=== PATIENT | male | born 1970 | race Caucasian/White ===

== ENCOUNTER 2023-12-17 12:14 | Outpatient (OUT) | payer BC, SELFPAY ==
--- NOTE | 2023-12-17 13:00 | CA_ITS ---
Patient Name: SHANTAL SUAREZ MR#: [id number] : 1970 Exam Date: 12/17/2023 Ordering Doctor: DR JUD GREENFIELD M.D. ECHOCARDIOGRAM REPORT PROCEDURE: CA ECHO DOPPLER COMPLETE INDICATIONS: Palpitations, hypertension, cardiac stents COMPARISON: None. DESCRIPTION: COMPLETE ECHOCARDIOGRAM Real-time transthoracic echocardiography with 2D, M-mode, spectral and color flow Doppler performed. QUALITY: Technical quality was good. 71 , 275#, BSA 2.41 m2, BP 112/74 LEFT VENTRICLE: Normal chamber size. Thickened septal wall. LV EF: Global left ventricular systolic function is normal; visually estimated ejection fraction 55 to 60%. No obvious wall motion abnormalities. DIASTOLIC: Normal diastolic function. ATRIAL SEPTUM: Visually appears intact. LEFT ATRIUM: Normal chamber size. RIGHT ATRIUM: Normal chamber size. RIGHT VENTRICLE: Normal chamber size. Normal right ventricular systolic function. TRICUSPID VALVE: Normal mobility and thickness. No stenosis with trivial regurgitation. No evidence of pulmonary hypertension. RVSP 32 mmHg MITRAL VALVE: Normal mobility and thickness. No evidence of mitral valve stenosis. There is no mitral annular calcification. Trivial mitral regurgitation. AORTIC VALVE: Normal trileaflet appearance. No visible sclerosis. Normal leaflet mobility. No evidence of aortic valve stenosis. No aortic regurgitation. AORTIC ROOT: Normal diameter and appearance. Ascending aorta is normal in size. PULMONIC VALVE: Normal thickness and mobility. No stenosis. Trivial regurgitation. PERICARDIUM: No evidence of pericardial effusion. IVC: Collapses with inspirations. IVC is dilated (2.3 cm) CONCLUSION: 1. Global left ventricular systolic function is normal; visually estimated ejection fraction is 55 to 60% 2. Normal right ventricular size and systolic function 3. Normal diastolic function 4. No significant valvular abnormalities Adult Echocardiography Procedure Report Left Ventricle LVEDD (3.7 - 5.6 cm): 5.14 cm LVESD (2.2 - 4.0 cm): 3.63 cm LVIVS thickness (0.6 - 1.2 cm): 1.72 cm LVPW thickness (0.5 - 1.0 cm): 1.05 cm e': 0.11 m/s E - e': 7.67 LVOT Max Gradient: 4.16 mm[Hg] LVOT Area (cm2): 1.02 m/s Peak Velocity (LVOT): 1.02 m/s Mean Velocity (LVOT): 0.75 m/s LVOT Diameter 2.74 cm Left Atrium LA Volume Index (2D A2C): 30.12 ml/m2 Left Atrium Systolic Dimension: 4.51 cm Mitral Valve MV E to A Ratio: 1.22 Mitral Valve A-Wave Peak Velocity: 0.71 m/s Mitral Valve E-Wave Peak Velocity: 0.87 m/s Right Ventricle Aorta AO Root Diam: 4.33 cm Ascending Ao Diam: 3.39 cm Aortic Valve AoV Area (Peak Ar): 5.06 cm2, 5.06 cm2 AoV Area (VTI): 5.01 cm2, 5.01 cm2 Peak Velocity(Antegrade Flow): 1.19 m/s Peak Gradient(Antegrade Flow): 5.65 mm[Hg] Mean Velocity(Antegrade Flow): 0.81 m/s Mean Gradient(Antegrade Flow): 3.05 mm[Hg] Velocity Time Integral: 27.21 cm Tricuspid Valve Peak Velocity (Regurgitant Flow): 2.46 m/s Pulmonic Valve Peak Gradient: 3.37 mm[Hg], 2.56 mm[Hg] Right Atrium Right Atrium Systolic Pressure: 65.28 ml, 65.28 ml Dictated by: Jud Greenfield M.D. on 12/19/2023 at 15:12 Approved by: Jud Greenfield M.D. on 12/19/2023 at 15:15
[2023-12-17 13:21] LABS: Alanine Aminotransferase 24 U/L (16-63); Albumin Globulin Ratio 1.3; Albumin Level 3.9 g/dL (3.4-5.0); Alkaline Phosphatase 47 U/L (46-116); Aspartate Amino Transferase 12 U/L (15-37); Bilirubin Direct 0.3 mg/dL (0.0-0.2); Bilirubin Total 1.4 mg/dL (0.2-1.0); Chol HDL Ratio 2.2; Cholesterol 98 mg/dL (<=200); HDL Cholesterol 44 mg/dL (40-60); Total Protein 6.9 g/dL (6.4-8.2); Triglycerides 60 mg/dL (<=150)
== END 2023-12-17 12:15 | disposition home or self-care (01) ==
LOC: CARD 12:17
PROVIDERS: PCP Internal Medicine; Visit Provider Internal Medicine Interventional Cardiology
DX: R00.2 Palpitations (principal); E78.5 Hyperlipidemia, unspecified
CPT/HCPCS: 36415; 80061; 80076; 93306

== ENCOUNTER 2024-11-17 10:02 | Outpatient (OUT) | payer BC, SELFPAY ==
--- OUTSIDE RECORDS SUMMARY | 2024-11-17 10:25 | XMS_ITS | CCD ---
Author Organization [facility] CliniSynj Care Team Providers Care Representative Personal Service Name Role Phone DAVID MARES Referring Unavailable CHAU REGALADO Primary Care Unavailable Chau Regalado Primary Care Provider [phone] Shantal Lopez Unavailable CHAU REGALADO Primary Care Physician [phone] SE[address] ., DR KIRBY Admitting Unavailable GANDARA ., DR KIRBY Attending Unavailable CLAUDIA, DR ABREU Primary Care Unavailable GANDARA ., DR KIRBY Consulting Unavailable LLOYD, SANGEETHA Admitting Unavailable SANGEETHA DESAI Attending Unavailable CLAUDIA, DR ABREU Primary Care Unavailable SANGEETHA DESAI Consulting Unavailable SHANTAL LOPEZ Admitting Unavailable JESSICA, SHANTAL Attending Unavailable CLAUDIA, DR ABREU Primary Care Unavailable CLAUDIA, DR ABREU Admitting Unavailable CLAUDIA, DR ABREU Attending Unavailable CLAUDIA, DR ABREU Primary Care Unavailable SANGEETHA DESAI Admitting Unavailable SANGEETHA DESAI Attending Unavailable CLAUDIA, DR ABREU Primary Care Unavailable MISC, DR MARY Admitting Unavailable MISC, DR MARY Attending Unavailable CLAUDIA, DR ABREU Primary Care Unavailable SANGEETHA DESAI Consulting Unavailable Jena Jackson Unavailable Chau Regalado Unavailable MD Shantal Lopez Attending Provider [phone] DO Chau Regalado Primary Care Provider [phone] DO Chau Regalado Primary Care Provider MAIN Jackson Attending Provider Shantal Lopez Admitting Unavailable Jessica, Shantal Attending Unavailable Chau Regalado Primary Care Unavailable Jena Jackson Admitting Unavailable Jena Jackson Attending Unavailable Chau Regalado Primary Care Unavailable Nash Rivas Primary Care Provider NAHED MEAR Referring NAHED Ayala Attending NASH Carballo Primary [facility] [place] Unavailab NASH Berman MORTEZA Primary Care Unavailab Wild Rose Attending Unavailable SEYMOUR, Wild Herrera Attending Unavailable SEYMOUR, Wild Herrera Attending Unavailable SEYMOUR, Wild Herrera Attending Unavailable SEYMOUR, Wild Herrera Admitting Unavailable TRACY MILLER Attending Unavailable EVITA, AB Attending Unavailable Allergies Allergy Classification Reported Allergen(s) Allergy Type Date of Onset Reaction(s) Facility (11 sources) Penicillins; Translations: [penicillins] Propensity to adverse reactions to drug 02-09-20 03 Rash, Unknown (qualifier value) [facility], [place] (3 sources) Penicillin V Drug Allergy Unknown [facility] Other (2 sources) Penicillins Drug allergy (disorder) 01-14-[address] [facility] Repository (6 sources) penicillAMINE Drug Allergy 12-03-19 Comment:unsure had reaction as a child [facility] (3 sources) Penicillin Drug Allergy Unknown [facility] Other (3 sources) Allergies Reconciled Propensity to adverse reactions Unknown [facility] Other (3 sources) Substance with penicillin structure and antibacterial mechanism of action (substance) Drug allergy Unknown [facility] Other (3 sources) patient allergy list reviewed by nurse or physicia Propensity to adverse reactions 05-25-20 16 Comment:Done [facility] Other (1 source) penicillAMINE Drug Allergy 12-03-19 [facility] Repository (1 source) Penicillins Drug allergy (disorder) 12-03-19 [facility] Repository (2 sources) Penicillins Drug Allergy 02-09-20 03 Rash, Unknown [facility] Medications Current Medications Medication Drug Class(es) Dates Sig (Normalized) Sig (Original) amLODIPine 5 mg oral tablet (11 sources) Dihydropyridine Calcium Channel Almaz Start: 12-03-2023 take 1 tablet by mouth once daily amLODIPine (NORVASC) 5 mg tablet Take 1 tablet by mouth once daily. 12/03/2023 Active take 1 tablet by vanessa th every twenty-four hours amLODIPine Besylate 5 MG 1 tablet Orally Once a day Active aspirin 81 mg delayed release oral tablet (16 sources) Platelet Aggregation Inhibitor, Nonsteroidal Anti-inflammatory Drug Start: 12-03-2023 take 1 tablet by mouth once daily Aspirin Active 81 MG PO Daily December 03, 2023 12:00am [facility] tablet Orally Once a day; Note: Source Status: Taking; Provider: Jessica Garcia ( ) Start: 06-18-2022 aspirin 81 mg Chew Tab mg tab(s), Chewed, Daily, Refills(s) 0 Start Date: 06/18/22 Status: Ordered atorvastatin 80 mg oral tablet (16 sources) HMG-CoA Reductase Inhibitor Start: 12-03-2023 take 1 tablet by mouth once daily Atorvastatin Active 1 TAB PO Daily December 03, 2023 12:00am [employer] tablet Orally Once a day; Note: Source Status: Taking; Provider: Jessica Garcia ( ) Start: 06-18-2022 atorvastatin O ral, Daily, Refills(s) 0 Start Date: 06/18/22 Status: Ordered Start: 03-11-2019 take 1 tablet by vanessa th once daily atorvastatin (LIPITOR) 80 MG tablet Take 80 mg by mouth daily 0 03/11/2019 Active carvedilol 3.125 mg oral tablet (15 sources) alpha-Adrenergic Almaz, beta-Adrenergic Almaz Start: 12-03-2023 take 1 tablet by mouth twice daily at mealtime Carvedilol Active 1 TAB PO Twice daily December 03, 2023 12:00am [employer] tablet with food Orally Twice a day; Note: Source Status: Taking; Provider: Jessica Garcia ( ) Start: 06-18-2022 carvedilol Ora l, Refills(s) 0 Start Date: 06/18/22 Status: Ordered clopidogrel (6 sources) P2Y12 Platelet Inhibitor Start: 06-18-2022 clopi dogrel Oral, Refills(s) 0 Start Date: 06/18/22 Status: Ordered take 1 tablet by mouth once airam y clopidogrel (PLAVIX) 75 MG tablet clopidogrel 75 mg tablet TAKE ONE TABLET BY MOUTH ONCE DAILY 0 Active doxycycline hyclate 100 mg oral capsule (6 sources) Tetracycline-class Drug Start: 01-02-2023 take 1 capsule by mouth every twelve hours Doxycycline Hyclate 100 MG 1 capsule Orally Twice a day for 7 days Jun, Active Start: 06-15-2019 End: 06-25-2019 take 1 capsule by mouth twice daily doxycycline monohydrate (MONODOX) 100 MG capsule Indications: Scrotal abscess Take 1 capsule by mouth 2 times daily for 10 days 20 capsule 0 06/15/2019 06/25/2019 Active ezetimibe (5 sources) Dietary Cholesterol Absorption Inhibitor Start: 06-18-2022 take 1 mg by mouth once daily ezetimibe mg, Oral, Daily, Refills(s) 0 Start Date: 06/18/22 Status: Ordered lisinopril 10 mg oral tablet (16 sources) Angiotensin Converting Enzyme Inhibitor Start: 12-03-2023 take 1 tablet by mouth once daily Lisinopril Active 1 TAB PO Daily December 03, 2023 12:00am [employer] tablet Orally Once a day; Note: Source Status: Taking; Provider: Jessica Garcia ( ) Start: 06-18-2022 lisinopril Ora l, Daily, Refills(s) 0 Start Date: 06/18/22 Status: Ordered sulfamethoxazole 400 mg / trimethoprim 80 mg oral tablet (2 sources) Dihydrofolate Reductase Inhibitor Antibacterial, Sulfonamide Antimicrobial Start: 06-18-2022 End: 07-02-2022 take 1 tablet by mouth every twelve hours Bactrim 400 mg-80 mg Tab 1 tab(s), Oral, q12hr for 14 day(s), 28 tab(s), Refill(s) 0, [facility], 180, cm, 06/18/22 12:29:00 EDT, Height/Length Dosing, 117.4, kg, 06/18/22 12:29:00 EDT, Weight Dosing Start Date: 06/18/22 Stop Date: 07/02/22 Status: Ordered Start: 06-12-2019 take 1 tablet by vanessa twice daily sulfamethoxazole-trimethoprim (BACTRIM DS;SEPTRA DS) 800-160 MG per tablet Take 1 tablet by mouth 2 times daily 0 06/12/2019 Active tamsulosin hydrochloride 0.4 mg oral capsule (6 sources) alpha-Adrenergic Almaz Start: 07-19-2023 take 1 capsule by mouth twice daily Flomax 0.4 mg Cap 0.4 mg = 1 cap(s), Oral, BID, # 60 cap(s), Refills(s) 11, Pharmacy: [facility], 180, cm, 11/14/22 13:47:00 EDT, Height/Length Dosing, 117, kg, 11/14/22 13:47:00 EDT, Weight Dosing Start Date: 07/19/23 Status: Ordered Start: 07-30-2022 take 1 capsule by [facility] twice daily Flomax 0.4 mg Cap 0.4 mg = 1 cap(s), Oral, BID, # 60 cap(s), Refills(s) 11, Pharmacy: [facility], 180, cm, 07/04/22 7:45:00 EST, Height/Length Dosing, 117, kg, 07/04/22 7:45:00 EST, Weight Dosing Start Date: 07/30/22 Status: Ordered Start: 06-18-2022 take 1 capsule by [facility] twice daily Flomax 0.4 mg Cap 0.4 mg = 1 cap(s), Oral, BID, # 60 cap(s), Refills(s) 11 Start Date: 06/18/22 Status: Ordered Zinc (6 sources) Zinc Active Completed/Discontinued Medications Medication Drug Class(es) Dates Sig (Normalized) Sig (Original) tadalafil 10 mg oral tablet (6 sources) Phosphodiesterase 5 Inhibitor Start: 07-30-2023 Cialis 10 mg Tab 10 mg = 1 tab(s), Oral, As Directed, PRN for erectile dysfunction, Take 1 tab 60 mins prior to sexualy activity. Do not exceed 20 mg in 24 hrs, # 5 tab(s), Refills(s) 11, Erectile dysfunction, Pharmacy: [facility], 180, cm, 11/14/22 13:47:00 EDT, Height/Length Dosing, 117, kg, 11/14/22 13:47:00 EDT, Weight Dosing Start Date: 07/30/23 Status: Ordered Start: 06-18-2022 take 1 tablet by [facility] once daily as needed Cialis 10 mg Tab 10 mg = 1 tab(s), Oral, Daily, PRN for erectile dysfunction, # 30 tab(s), Refills(s) 11, Pharmacy: [facility], 180, cm, 06/18/22 12:29:00 EDT, Height/Length Dosing, 117.4, kg, 06/18/22 12:29:00 EDT, Weight Dosing Start Date: 06/18/22 Status: Ordered triamcinolone acetonide 40 mg/ml injectable suspension (20 sources) Corticosteroid Start: 2022 Kenalog-40 Aug, 40 mg Start: 08-29-2021 Kenalog -40 mg Aug, 40 mg Start: 03-07-2021 Kenalog -40 mg Feb, 40 mg Problems Active Problems Problem Classification Problem Date Documented Date Episodic/Chronic Anxiety disorders (6 sources) Anxiety disorder; Translations: [Anxiety disorder, unspecified] Onset: 3 12-02-2023 Chronic Calculus of urinary tract (8 sources) Kidney stone; Translations: [Calculus of kidney] Onset: 2 Episodic Coronary atherosclerosis and other heart disease (16 sources) Atherosclerotic heart disease of [place] coronary artery with unspecified angina pectoris; Translations: [Atherosclerotic heart disease of [place] coronary artery without angina pectoris] Onset: 6 Chronic Deficiency and other anemia (3 sources) Anemia due to chronic blood loss; Translations: [Iron deficiency anemia secondary to blood loss (chronic)] Onset: 3 Chronic Disorders of lipid metabolism (11 sources) Familial hypercholesterolemia; Translations: [Familial hypercholesterolemia] Onset: 5 12-02-2023 Chronic Diverticulosis and diverticulitis (3 sources) Diverticulitis of colon; Translations: [Diverticulitis of colon (without mention of hemorrhage)] Onset: 7 Chronic Essential hypertension (11 sources) Essential hypertension; Translations: [Unspecified essential hypertension] Onset: 5 12-02-2023 Chronic Genitourinary symptoms and ill-defined conditions (20 sources) Dysuria; Translations: [Dysuria] Onset: 2 Episodic Hyperplasia of prostate (20 sources) Benign prostatic hypertrophy with outflow obstruction; Translations: [Benign prostatic hyperplasia with lower urinary tract symptoms] Onset: 2 Chronic Inflammatory conditions of male genital organs (11 sources) Abscess of scrotum; Translations: [Prostatitis] Onset: 2 Episodic Joint disorders and dislocations; trauma-related (3 sources) Derangement of left knee; Translations: [Other internal derangements of left knee] Chronic Joint disorders and dislocations; trauma-related (3 sources) Derangement of right knee; Translations: [Other internal derangements of right knee] Chronic Osteoarthritis (20 sources) Arthritis of right acromioclavicular joint; Translations: [Primary osteoarthritis, right shoulder] Onset: 2 Resolved: 2 Chronic Other connective tissue disease (12 sources) Supraspinatus tear; Translations: [Unspecified rotator cuff tear or rupture of right shoulder, not specified as traumatic] 12-02-2023 Episodic Other connective tissue disease (6 sources) Partial thickness rotator cuff tear; Translations: [Incomplete rotator cuff tear or rupture of right shoulder, not specified as traumatic] Episodic Other connective tissue disease (3 sources) Impingement syndrome of shoulder region; Translations: [Impingement syndrome of right shoulder] Episodic Other connective tissue disease (3 sources) Bicipital tenosynovitis; Translations: [Bicipital tendinitis, right shoulder] Episodic Other connective tissue disease (2 sources) Trochanteric bursitis, right hip Episodic Other connective tissue disease (3 sources) Biceps tendinitis; Translations: [Bicipital tendinitis, right shoulder] 12-02-2023 Episodic Other connective tissue disease (1 source) Disorder of rotator cuff; Translations: [Unspecified disorder of synovium and tendon, right shoulder] 07-07-2024 Episodic Other diseases of kidney and ureters (3 sources) Acquired renal cyst without neoplastic change; Translations: [Cyst of kidney, acquired] Onset: 2 Episodic Other diseases of kidney and ureters (2 sources) Urinary tract obstruction; Translations: [Other obstructive and reflux uropathy] Onset: 2 Episodic Other diseases of kidney and ureters (4 sources) Cyst of kidney 07-04-2022 Episodic Other male genital disorders (8 sources) Male erectile dysfunction, unspecified; Translations: [Erectile dysfunction] Onset: 2 Chronic Other non-traumatic joint disorders (5 sources) Pain in right shoulder Onset: 2 Resolved: 2 Episodic Other non-traumatic joint disorders (3 sources) Shoulder joint pain; Translations: [Pain in right shoulder] Episodic Other nutritional; endocrine; and metabolic disorders (3 sources) Obesity; Translations: [Obesity, unspecified] Chronic Other nutritional; endocrine; and metabolic disorders (6 sources) Obese class II; Translations: [Body mass index 37.0-37.9, adult] Onset: 6 Chronic Other nutritional; endocrine; and metabolic disorders (3 sources) Body mass index 40+ - severely obese; Translations: [Body Mass Index 40.0-44.9, adult] Onset: 6 Chronic Other nutritional; endocrine; and metabolic disorders (3 sources) Morbid obesity; Translations: [Morbid (severe) obesity due to excess calories] Onset: 6 Chronic Residual codes; unclassified (4 sources) Family history of cancer; Translations: [Family history of malignant neoplasm of prostate] Onset: 2 Episodic Residual codes; unclassified (4 sources) Family history of prostate cancer 07-04-2022 Episodic Residual codes; unclassified (2 sources) Pain; Translations: [Pain, unspecified] 07-07-2024 Episodic Residual codes; unclassified (1 source) Pain, unspecified; Translations: [Pain] Onset: 4 Episodic Skin and subcutaneous tissue infections (4 sources) Carbuncle; Translations: [Carbuncle, unspecified] Episodic Spondylosis; intervertebral disc disorders; other back problems (6 sources) Lumbar spondylosis; Translations: [Spondylosis without myelopathy or radiculopathy, lumbar region] 12-02-2023 Chronic Unclassified (2 sources) Asymptomatic microscopic hematuria 11-20-2023 Past or Other Problems Problem Classification Problem Date Documented Da te Episodic/Chronic Abdominal pain (3 sources) Left lower quadrant pain; Translations: [Left lower quadrant pain] Onset: 10-28-2017 Episodic Administrative/social admission (3 sources) Stress; Translations: [Other psychological or physical stress, not elsewhere classified] Onset: 07-03-2016 Episodic Allergic reactions (3 sources) Contact dermatitis; Translations: [Contact dermatitis and other eczema, due to unspecified cause] Onset: 09-29-2014 Episodic Cardiac dysrhythmias (3 sources) Palpitations; Translations: [Palpitations] Onset: 05-25-2016 Episodic Deficiency and other anemia (3 sources) Anemia; Translations: [Anemia, unspecified] Onset: 02-01-2018 Episodic Malaise and fatigue (6 sources) Fatigue; Translations: [Other fatigue] Onset: 05-08-2013 Episodic Nonspecific chest pain (3 sources) Chest pain; Translations: [Chest pain, unspecified] Onset: 05-25-2016 Episodic Other connective tissue disease (8 sources) Unspecified rotator cuff tear or rupture of right shoulder, not specified as traumatic; Translations: [Supraspinatus (muscle) (tendon) sprain] Onset: 08-29-2021 Resolved: 2022 Episodic Other ear and sense organ disorders (3 sources) Bilateral tinnitus; Translations: [Tinnitus, bilateral] Onset: 07-03-2016 Episodic Other gastrointestinal disorders (3 sources) Flatulence, eructation and gas pain; Translations: [Abdominal distension (gaseous)] Onset: 10-22-2017 Episodic Other skin disorders (3 sources) Atrophoderma; Translations: [Unspecified hypertrophic and atrophic condition of skin] Onset: 02-13-2017 Episodic Otitis media and related conditions (3 sources) Non-suppurative otitis media; Translations: [Nonsuppurative otitis media, not specified as acute or chronic] Onset: 08-16-2015 Episodic Residual codes; unclassified (1 source) Family history of malignant neoplasm of prostate; Translations: [FAMILY HX MALIG NEOPLASM PROSTATE] Onset: 07-14-2022 Episodic Residual codes; unclassified (3 sources) Reduced libido; Translations: [Decreased libido] Onset: 05-08-2013 Episodic Unclassified (3 sources) Long-term current use of drug therapy; Translations: [Long-term (current) use of other medications] Onset: 10-22-2017 Results Test Name Value Interpretation Reference Range Facility Office Visiton 11-11-2024 Follow-up visit [id number] Boubacar Leonard 1970 M Date Provider Department Center 11/11/2024 [id number] MILLER Family History Problem Relation Age of Onset Coronary artery disease Father Other Father Prostate cancer Father Heart attack Father's Brother Family Status - Relation Status Age at Father Father's Brother Level of Service:31739 [place] OFFICE/OUTPATIENT ESTABLISHED LOW MDM 20 MIN Normal [facility] CNOVon 07-07-2024 CNOV Office Visit (SPRTST ) SHANTAL LEONARD ([id number]) 1970 M Date Time Provider Department 07/07/24 11:00 AM NAHED MERA SPRTST During your visit today, we recorded the following information about you: Ita Palmer MD 07/07/2024 12:09 PM Signed Nahed Mera M.D. global vp creative + content marketing [facility] [address] [place] [address] INITIAL ENCOUNTER FOR A NEW SHOULDER PROBLEM Chief Complaint: Right shoulder pain HPI: Shantal Leonard is seen at the request of Nahed Mera for consultation regarding the above problem. Findings and recommendations will be communicated back to the referring provider via availability in the shared electronic medical record. Shantal Leonard is a 54 year old male who presents with the above complaint. Hand dominance: Right. Reports atraumatic right shoulder pain x 4 months. Has been seeing an outside orthopaedic provider and has received multiple steroid injections to the shoulder over the past 4 years every 6 months (about 8-10). Recently had a shoulder massage with complete relief of his pain and improved range of motion as well. Last CSI was October 2023 and has not needed one since. Here for second opinion as he was told he would benefit from rotator cuff repair. He denies having any neck pain, radicular pain, numbness/tingling in the arm. Patient does not note any associated mechanical symptoms. All available outside records have been reviewed. REVIEW OF SYSTEMS: Constitutional: patient denies any recent fever or significant change in weight Cardiovascular: patient denies any chest pain at rest Respiratory: patient denies any shortness of breath or cough Gastrointestinal: patient denies any current abdominal discomfort Integumentary: patient denies any recent skin changes Musculoskeletal: as noted in the HPI Neurologic: as noted in the HPI Endocrine: patient denies a current diagnosis of diabetes Hematologic/Lymphatic: patient denies any easily bleeding, any recent infection and denies any recent observable lymph node enlargement Psychologic: negative for any recent depression or anxiety issues No family history on file. No past medical history on file. No past surgical history on file. ALLERGIES Allergen Reactions Penicillins Rash, Unknown Itching/rash Problem List: reviewed and updated. Contributory Co-morbidities: Assessed as indicated; currently managed. Social History: Physical Activity/Sports/Exerci se: recreational Occupation: owns [employer] Current Outpatient Medications Medication Sig amLODIPine (NORVASC) 5 mg tablet Take 1 tablet by mouth once daily. aspirin, enteric coated (ASPIRIN, ENTERIC COATED) 81 mg EC tablet Take 81 mg by mouth once daily. lisinopril (ZESTRIL) 10 mg tablet Take 10 mg by mouth once daily. carvedilol (COREG) 3.125 mg tablet Take 3.125 mg by mouth two times a day with meals. atorvastatin (LIPITOR) 80 mg tablet Take 80 mg by mouth daily at bedtime. Tadalafil (CIALIS) 10 mg tablet Take 10 mg by mouth once daily as needed. tamsulosin (FLOMAX) 0.4 mg Take 0.4 mg by mouth two times a day. No current facility-administered medications for this visit. Physical Exam: There were no vitals taken for this visit. Constitutional: Pleasant, well-appearing, no acute distress. Resp: breathing is unlabored without audible wheeze Vascular: Normal pedal and radial pulses, no cyanosis, no venous stasis changes Skin: No overlying skin change, ecchymosis, or erythema. Psychiatric: Pleasant, direct, appropriate mood and affect General Orthopaedic Examination: Ambulates well. No other major joint abnormalities noted. 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 Pulses: 2+ radial, ulnar; hands warm bilat, <2sec CR Compartments: soft and compressible Cervical Spine:Appropriate range of motion, negative midline and paraspinal muscle tenderness, negative stepoff, and negative Spurling's test. Focused Upper Extremity Musculoskeletal/Neurol ogic Exam: Contra-lateral shoulder wnl. Examination of the involved shoulder demonstrates : Upright posture. No significant atrophy, winging or obvious deformity. No significant passive stiffness. Full active range of motion- 180 degrees forward elevation, T6 IR, 45 degrees ER bilaterally. Mild pain with resisted abduction and forward elevation Strength 5/5 abduction, 5/5 external rotation with the elbow at the side. No lag signs. Negative belly press, lift off and bear hug tests. Negative Speeds test. Negative Yergason's test. No biceps Evgeny deformity. Mild tenderness over the greater tuberosity. Calvillo test and Neer test are negative. No tenderness or instability of the acromioclavicular o (more content not included)... Normal [facility] XR SHLDR >/=3V AP/MATTI AP/OTH R RTon 07-07-2024 XR SHLDR >/=3V AP/MATTI AP/OTHR RT * * *Final Report* * * DATE OF EXAM: Jul 07 2024 10:52AM STX [id number] - XR SHLDR >/=3V AP/MATTI AP/OTHR RT / PROCEDURE REASON: Pain * * * * Physician Interpretation * * * * RIGHT shoulder x-rays: HISTORY: Pain TECHNIQUE: 3 views were obtained. COMPARISON: None RESULT: Osseous structures are intact, without evidence of an acute fracture nor dislocation. The glenohumeral joint space and acromiohumeral interval are maintained. Mild osteophyte formation is noted at the acromioclavicular joint. IMPRESSION: 1. Mild acromioclavicular degenerative arthrosis. [employer] Intelligence Officer Chief: JOHN Transcribe Date/Time: Jul 09 2024 11:11A Dictated by : GODFREY VANG MD This examination was interpreted and the report reviewed and electronically signed by: GODFREY VANG MD on Jul 09 2024 11:11AM EST [id number] Normal [facility] SHANTAL LEONARD ([id number]) 1970 M Date Time Provider Department 07/01/24 NAHED MERA During your visit today, we recorded the following information about you: Inessa Garcia MA 07/01/2024 1:11 PM Signed LM for for patient to call office back. Patient to bring in CD for appointment. Need to know what location images were done at and if they are xray or MRI images. Also, need patient to bring report with disc. Waiting for patient to call back with response to message. Inessa Garcia MA 07/06/2024 1:43 PM Signed Tried calling patient again no answer. Will try again later. Allergies As of Date: 07/01/2024 (Not on File) Date Reviewed: Never Reviewed Problem List As Of Date: 07/01/2024 (None) Encounter Status:Closed by INESSA GARCIA on 07/07/24 Normal [facility] MR shoulder RT wo conon 02-16 MR shoulder RT wo [place] [facility] [place] [address] MRI Report Signed Patient: Shantal Leonard MR#: [id number] 614 : 1970 Acct:[id number] Age/Sex: 54 / M ADM Date: 03/05/24 Loc: Room: Type: [facility] Attending Dr: Jena Jackson NP-C Copies to: NAVEED Aguilar Ordering Provider: NAVEED Aguilar Date of Service: 03/05/24 MR/MR shoulder RT wo con: M75.101 - Unspecified rotator cuff tear or rupture of rig... MRI right Shoulder without contrast TECHNIQUE: Multiplanar T1 and T2-weighted imaging obtained without contrast. HISTORY: Chronic right shoulder pain. Known biceps tendon tear. COMPARISON: Plain film imaging 12/03/2023 BONE MARROW EDEMA: None FRACTURE: None AC JOINT: Unremarkable SHOULDER ROOF LIGAMENTS: The coracoacromial and coracoclavicular ligaments are intact. ROTATOR CUFF: Mildly retracted full-thickness tear of the supraspinatus tendon 1 to 2 cm from the footplate of the greater tuberosity identified. The infraspinatus tendon intact. Teres minor tendons intact. Subscapularis tendon is partially:. Cystic changes of the footplate of the greater tuberosity consistent with chronic changes. ROTATOR CUFF INTERVAL: Unremarkable BURSAL FLUID: Moderate fluid suggesting full-thickness tear. GLENOID: Heterogeneous signal changes of the anterior inferior portion of the glenoid labrum suggesting fraying and possible tear. BICEPS LABRAL COMPLEX: Intact LONG HEAD OF BICEPS TENDON: Anterior medial displacement of the long head biceps tendon at the Dick. Fluid within the bicipital groove may represent tendinopathy. GLENOHUMERAL LIGAMENTS: The superior glenohumeral ligament is intact. The middle glenohumeral ligament is intact. The anterior and posterior glenohumeral ligaments are intact. Thickening of the axillary pouch may suggest adhesive capsulitis. JOINT EFFUSION: Small joint effusion. MUSCLES: Normal signal intensity of the muscles. NO SUBCUTANEOUS TISSUES: No subcutaneous abnormalities identified. MR/MR shoulder RT wo con IMPRESSION: Mildly retracted full-thickness tear of the supraspinatus tendon 1 to 2 cm from the footplate of the greater tuberosity insertion. Moderate subacromial subdeltoid bursal fluid. Acromioclavicular arthrosis with mild inferior marginal spurring. Medial displacement of the long head of biceps tendon. Fraying of partial tear of the anterior inferior portion of the glenoid labrum. Impression dictated by: Jorden Kaminski M.D.03/05/2024 11:13 AM Dictation Location: [place] [address] Transcribed By: [facility] 03/05/24 1113 Dictated By: Jorden Kaminski DO 03/05/24 1053 Signed By: 03/05/24 1113 Normal [facility] Cholesterol in LDL Calc [Mas s/Vol]on 12-17-2023 Cholesterol in LDL [Mass/Vol] 42.0 mg/dL [facility] Comment on above: <100 mg/dl [id number] 0-129 mg/dl NEAR OR ABOVE [id number] mg/dl BORDERLINE [id number] mg/dl HIGH>190 mg/dl VERY HIGH Cholesterol in VLDL Calc [Ma ss/Vol]on 12-17-2023 Cholesterol in VLDL [Mass/Vol] 12.0 mg/dL [facility] Globulin Calc (S) [Mass/Vol] on 12-17-2023 Globulin (S) [Mass/Vol] 3.0 g/dL [facility] Laboratory - Chemistry and C hemistry - challengeon 12-17-2023 Albumin [Mass/Vol] 3.9 g/dL 3.4-5.0 [facility] ALP [Catalytic activity/Vol] 47 U/L 46-116 [facility] ALT [Catalytic activity/Vol] 24 U/L 16-63 [facility] AST [Catalytic activity/Vol] 12 U/L Low 15-37 [facility] Bilirubin [Mass/Vol] 1.4 mg/dL High 0.2-1.0 [facility] Bilirubin.direct [Mass/Vol] 0.3 mg/dL High 0.0-0.2 [facility] Cholesterol [Mass/Vol] 98 mg/dL <=200 [facility] Cholesterol in HDL [Mass/Vol] 44 mg/dL 40-60 [facility] Comment on above: > or =60 mg/dl - LOW CARDIOVASCULAR RISK<40 mg/dl - HIGH CARDIOVASCULAR RISK Protein [Mass/Vol] 6.9 g/dL 6.4-8.2 [facility] Triglyceride [Mass/Vol] 60 mg/dL <=150 [facility] Serum or plasma albumin/glob ulin mass ratioon 12-17-2023 Albumin/Globulin [Mass ratio] 1.3 {ratio} [facility] Serum or plasma total choles terol/high density lipoprotein (HDL) cholesterol mass jose 12-17-2023 Cholesterol.total/Cho lesterol in HDL [Mass ratio] 2.2 {ratio} [facility] Comment on above: 3.3 - 4.4 LOW RISK4. 4 - 7.1 AVERAGE RISK7.1 - 11.0 MODERATE RISK>11.0 HIGH RISK XR shoulder RT min 2V*on XR shoulder RT min 2V* [facility] [address] [place] [address] XRay Report Signed Patient: Shantal Leonard MR#: [id number] 614 : 1970 Acct:[id number] Age/Sex: 53 / M ADM Date: 12/03/23 Loc: [facility] Room: Type: [facility] Attending Dr: Shantal Lopez MD Copies to: Shantal Lopez MD Ordering Provider: Shantal Lopez MD Date of Service: 12/03/23 XR/XR shoulder RT min 2V*: M75.101 - Unspecified rotator cuff tear or rupture of rig... RIGHT SHOULDER - - 4 views CLINICAL HISTORY: Right shoulder pain for 1+ years. COMPARISON: Right shoulder 03/21/2020 FINDINGS: Moderate degenerative changes of the AC and glenohumeral joints without acute bony process. XR/XR shoulder RT min 2V* IMPRESSION: MODERATE DEGENERATIVE CHANGES OF THE RIGHT SHOULDER WITHOUT ACUTE BONY PROCESS. Impression dictated by: Gabriel Worrell Jr., D.O.12/03/2023 12:55 PM Dictation Location: [place] [address] Transcribed By: [facility] 12/03/23 1255 Dictated By: Gabriel Worrell Jr, DO 12/03/23 1254 Signed By: 12/03/23 1255 Normal [facility] Ambulatory Visit Summaryon 0 11-20-2023 Ambulatory Visit Summary SHANTAL LEONARD :1970 Visit Date:11/20/2023 Ambulatory Visit Instructions Your Diagnosis BPH with urinary obstruction Asymptomatic microscopic hematuria Kidney stones Erectile dysfunction Family history of prostate cancer in father Tests Performed XR Abdomen 1 View -- Results Pending -- Please visit your patient portal for your results or contact your primary care physician. Your Care Team Attending Physician - SEYMOUR LOW, Wild Herrera Primary Care Physician - CHAU REGALADO DO This Is Your Medications List tadalafil (Cialis 10 mg Tab) tamsulosin (Flomax 0.4 mg Cap) Contact prescribing physician if questions or concerns aspirin (aspirin 81 mg Chew Tab) atorvastatin carvedilol clopidogrel ezetimibe lisinopril Procedures Performed Cystoscopy (07/04/2022), Knee, Wrist. Discharge Vitals Temperature (Temporal Artery) 36.2 ?C Heart Rate (Peripheral) 68 Respiratory Rate 18 Blood Pressure 139/98 Height 180 cm Height 71 in Weight 133.4 kg Weight 293.48 lb BMI 41.17 What to do next Scheduled Follow-Up Appointments Saturday 2:15 PM EDT With: SEYMOUR LOW, Wild Herrera Where: [facility] Dayanna Benito [facility] CHEMISTRYOrdered By: SYSTEM SYSTEM on 11-20-2023 Prostate specific Ag [Mass/Vol] 1.0 ng/mL Normal 0.1 - 3.5 ng/mL [facility] Comment on above: Interpretive Data: T he concentration of PSA determined by different manufacturers can vary due to differences in assay methods and reagent specificity. Values obtained from different assay methods cannot be used interchangeably. The methodology used for this result was chemiluminescence using Maria Esther [employer] Access Hybritech PSA reagent. PSA Totalon 11-20-2023 Prostate specific Ag [Mass/Vol] 1.0 ng/mL Normal 0.1-3.5 [facility] Comment on above: Result Comment: The concentration of PSA determined by different manufacturers can vary due to differences in assay methods and reagent specificity. Values obtained from different assay methods cannot be used interchangeably. The methodology used for this result was chemiluminescence using Maria Esther Gay[employer]'s Access Hybritech PSA reagent. Performed By: #### 1 [id number] #### [facility] [address] [place] [address] Patient Educationon 11-20-19 24 Patient Education Oncology Prostate Cancer Screening Prostate cancer screening is testing that is done to check for the presence of prostate cancer in men. The prostate gland is a walnut-sized gland that is located below the bladder and in front of the rectum in males. The function of the prostate is to add fluid to semen during ejaculation. Prostate cancer is one of the most common types of cancer in men. Who should have prostate cancer screening? Screening recommendations vary based on age and other risk factors, as well as between the professional organizations who make the recommendations. In general, screening is recommended if: ? You are age 50 to 70 and have an average risk for prostate cancer. You should talk with your health care provider about your need for screening and how often screening should be done. Because most prostate cancers are slow growing and will not cause , screening in this age group is generally reserved for men who have a 10- to 15-year life expectancy. ? You are younger than age 50, and you have these risk factors: ? Having a father, brother, or uncle who has been diagnosed with prostate cancer. The risk is higher if your family member's cancer occurred at an early age or if you have multiple family members with prostate cancer at an early age. ? Being a male who is Black or is of [place] or sub-Saharan descent. In general, screening is not recommended if: ? You are younger than age 40. ? You are between the ages of 40 and 49 and you have no risk factors. ? You are 70 years of age or older. At this age, the risks that screening can cause are greater than the benefits that it may provide. If you are at high risk for prostate cancer, your health care provider may recommend that you have screenings more often or that you start screening at a younger age. How is screening for prostate cancer done? The recommended prostate cancer screening test is a blood test called the prostate-specific antigen (PSA) test. PSA is a protein that is made in the prostate. As you age, your prostate naturally produces more PSA. Abnormally high PSA levels may be caused by: ? Prostate cancer. ? An enlarged prostate that is not caused by cancer (benign prostatic hyperplasia, or BPH). This condition is very common in older men. ? A prostate gland infection (prostatitis) or urinary tract infection. ? Certain medicines such as male hormones (like testosterone) or other medicines that raise testosterone levels. A rectal exam may be done as part of prostate cancer screening to help provide information about the size of your prostate gland. When a rectal exam is performed, it should be done after the PSA level is drawn to avoid any effect on the results. Depending on the PSA results, you may need more tests, such as: ? A physical exam to check the size of your prostate gland, if not done as part of screening. ? Blood and imaging tests. ? A procedure to remove tissue samples from your prostate gland for testing (biopsy). This is the only way to know for certain if you have prostate cancer. What are the benefits of prostate cancer screening? ? Screening can help to identify cancer at an early stage, before symptoms start and when the cancer can be treated more easily. ? There is a small chance that screening may lower your risk of dying from prostate cancer. The chance is small because prostate cancer is a slow-growing cancer, and most men with prostate cancer from a different cause. What are the risks of prostate cancer screening? The main risk of prostate cancer screening is diagnosing and treating prostate cancer that would never have caused any symptoms or problems. This is called overdiagnosisand overtreatment. PSA screening cannot tell you if your PSA is high due to cancer or a different cause. A prostate biopsy is the only procedure to diagnose prostate cancer. Even the results of a biopsy may not tell you if your cancer needs to be treated. Slow-growing prostate cancer may not need any treatment other than monitoring, so diagnosing and treating it may cause unnecessary stress or other side effects. Questions to ask your health care provider ? When should I start prostate cancer screening? ? What is my risk for prostate cancer? ? How often do I need screening? ? What type of screening tests do I need? ? How do I get my test results? ? What do my results mean? ? Do I need treatment? Where to find more information ? The [employer]: www.cancer.org ? [employer] Association: www.auanet.org Contact a health care provider if: ? You have difficulty urinating. ? You have pain when you urinate or ejaculate. ? You have blood in your urine or semen. ? You have pain in your back or in the area of your prostate. Summary ? Prostate cancer is a common type of cancer in men. The prostate gland is located below the bladder and in front of the rectum. This gland adds flu (more content not included)... Normal [facility] Urology Office/Clinic Noteon 11-20-2023 Urology Office/Clinic Note Chief Complaint 1 year follow up HPI Staff Pt is here for 1 year F/U with PSA & ADONAY. Previous PSA 07/09/22- 1.04. PSA drawn IO today. Previous DX; BPH w/ urinary obstruction, gross hematuria, kidney stones, kidney cysts, ED * Taking Flomax 0.4 mg BID, Cialis 10 mg PRN Dysuria: denies pain or burning Incomplete bladder emptying: denies Hematuria: denies visible blood, UA shows SMALL Frequency: denies Urgency: sometimes Nocturia: varies depend on water intake Stream: denies hesitancy, denies weak stream Leaking: denies Post void dripping: denies Wearing pads/ Depends: denies Urge incontinence: denies Stress incontinence: denies Incontinence without Sensory Awareness: denies Abdominal pain: denies Flank pain: denies Sexual complaints: denies History of Present Illness Tests reviewed: reviewed UA, PSA I have reviewed the previous health record information and history for this patient from Dr. Gandara. I have reviewed and verified the staff HPI to be accurate for this encounter. There have been no associated fever, chills, flank pain, or blood in the urine. Denies any urinary infections since last encounter. Review of Systems PHQ Score Initial Depression Screen Score: 0 SCORE ROS - Provider Constitutional: denies weight loss, denies hot flashes. Eyes: denies eye problems. Gastrointestinal: denies nausea, denies vomiting. Cardiovascular: denies chest pain or angina. Integumentary: no dryness Musculoskeletal: denies musculoskeletal symptoms. ENMT: denies otolaryngeal symptoms. Respiratory: no shortness of breath. Heme/Lymph: denies easy bleeding tendency, denies easy bruising tendency. Psychiatric: no confusion, no anxiety. Genitourinary: See HPI. Physical Exam Vitals & Measurements T: 36.2 ?C(Temporal Artery) HR: 68(Peripheral) RR: 18 BP: 139/98 HT: 71 in HT: 180 cm WT: 133.4 kg WT: 293.48 lb BMI: 41.17 General Appearance: alert, no distress, well nourished, well developed male. Genitourinary: normal scrotum, normal testes, normal urethra, normal epididymis, normal vas deferens/spermatic cord. Flank Pain: none. Bladder: nonpalpable. Prostate: normal prostate, estimated weight 40 gms, no hard nodule observed. Assessment/Plan 1. BPH with urinary obstruction (N40.1: Benign prostatic hyperplasia with lower urinary tract symptoms) PSA: 07/09/22 - 1.04 11/20/23 - blood drawn IO today Taking Flomax 0.4 mg bid, seems to be working well. Voiding well wo difficulty. ADONAY 40 g, no nodules. Follow up 1 yr with PSA and KUB or sooner if needed. Pt understands and agrees with plan. 2. Asymptomatic microscopic hematuria (R31.21: Asymptomatic microscopic hematuria) Hematuria workup 06/2022 neg for malignancy. UA shows small blood, neg for infection. Denies gross hematuria. 3. Kidney stones (N20.0: Calculus of kidney) CT AP w/wo con scan 05/08/22 - Left mid to low pole 3 mm stone. No stone issues since prior encounter. 4. Erectile dysfunction (N52.9: Male erectile dysfunction, unspecified) Cialis 10 mg QD and PRN. 5. Family history of prostate cancer in father (Z80.42: Family history of malignant neoplasm of prostate) Father had radiation. Passed at 74. Diagnosed around 69. [1] Follow-up With When Contact Information SEYMOUR LOW, Wild Herrera, URL [facility] [address] [place] [address]- Additional Instructions: 1 yr with PSA and KUB Patient Education Prostate Cancer Screening I, Ivett Bella, personally scribed for Dr. Gandara on 11/20/2023 14:50:54. . Documentation recorded by the scribe, Ivett Bella, accurately reflects the services(s) I performed and decisions made by me. Authenticated by Dr. Gandara on 11/20/2023 14:52:42. Problem List/Past Medical History Ongoing Asymptomatic microscopic hematuria BPH with urinary obstruction Dysuria Erectile dysfunction Family history of prostate cancer in father Gross hematuria Kidney cysts Kidney stones Prostatitis Historical No qualifying data Procedure/Surgical History Cystoscopy (07/04/2022), Knee, Wrist. Medications aspirin 81 mg Chew Tab, Chewed, Daily atorvastatin, Oral, Daily carvedilol, Oral Cialis 10 mg Tab, 10 mg= 1 tab(s), Oral, As Directed, PRN, 11 refills clopidogrel, Oral ezetimibe, Oral, Daily Flomax 0.4 mg Cap, 0.4 mg= 1 cap(s), Oral, BID, 11 refills lisinopril, Oral, Daily Allergies penicillins (Unknown) Social History Alcohol Current, Beer, Liquor, 1-2 times per month, 06/18/2022 Tobacco Never (less than 100 in lifetime) Tobacco Use:. Never Smokeless Tobacco Use:., 11/20/2023 Family History Prostate cancer: Father. Immunizations Vaccine Date Status hepatitis A-hepatitis B vaccine 01/04/2012 Recorded hepatitis A-hepatitis B vaccine 11/23/2011 Recorded hepatitis A-hepatitis B vaccine 12/23/2001 Recorded Lab Results Ambulatory Point of Care Results Bilirubin Urine (more content not included)... Normal [facility] Comment on above: Result Comment: Elec tronically Signed By: Wild GANDARA MD\.br\Date and Time Signed: 11/20/23 14:52 EDT\.br\Electronically Co-Signed By: Ivett Bella\.br\Date and Time Co-Signed: 11/20/23 14:51 EDT Office Visiton 11-13-2023 Follow-up visit [id number] Boubacar Leonard E 1970 M Date Provider Department Center 11/13/2023 [id number] AMARO CARD [facility] Family History Problem Relation Age of Onset Coronary artery disease Father Other Father Prostate cancer Father Heart attack Father's Brother Family Status - Relation Status Age at Father Father's Brother Level of Service:86885 [place] OFFICE/OUTPATIENT ESTABLISHED MOD MDM 30 MIN Normal [facility] LIPID PROFILEon 11-05-2022 CHOL-HDL RATIO NORM SEE BELOW Normal [facility] Comment on above: Result Comment: 3.3 - 4.4 LOW RISK 4.4 - 7.1 AVERAGE RISK 7.1 - 11.0 MODERATE RISK >11.0 HIGH RISK Performed By: #### L IPID, LIVER #### [facility] [address] [place] [address] [address] Josy Rivera Cholesterol [Mass/Vol] 108 mg/dL Normal <=200 [facility] Comment on above: Performed By: #### L IPID, LIVER #### [facility] [address] [place] [address] [address] Josy Rivera Cholesterol in HDL [Mass/Vol] 44 mg/dL Normal 40-60 [facility] Comment on above: Performed By: #### L IPID, LIVER #### [facility] [address] [place] [address] [address] Josy Rivera Cholesterol in LDL [Mass/Vol] 52.0 mg/dL Normal [facility] Comment on above: Performed By: #### L IPID, LIVER #### [facility] [address] [place] [address] [address] Josy Rivera Cholesterol.total/Cho lesterol in HDL [Mass ratio] 2.5 {ratio} Normal [facility] Comment on above: Performed By: #### L IPID, LIVER #### [facility] [address] [place] [address] [address] Josy Rivera HDL NORMAL > or = 60 mg/dl - LO W CARDIOVASCULAR RISK <40 mg/dl - HIGH CARDIOVASCULAR RISK Normal [facility] Comment on above: Performed By: #### L IPID, LIVER #### [facility] [address] [place] [address] [address] Josy Rivera LDL CALC NORMAL SEE BELOW Normal [facility] Comment on above: Result Comment: <100 mg/dl OPTIMAL 100 - 129 mg/dl NEAR OR ABOVE OPTIMAL 130 - 159 mg/dl BORDERLINE HIGH 160 - 189 mg/dl HIGH >190 mg/dl VERY HIGH Performed By: #### L IPID, LIVER #### [facility] [address] [place] [address] Dr. Josy Rivera Triglyceride [Mass/Vol] 60 mg/dL Normal <=150 [facility] Comment on above: Performed By: #### L IPID, LIVER #### [facility] [address] [place] [address] Dr. Josy Rivera VLDL CALC 12.0 mg/dL Normal [facility] Comment on above: Performed By: #### L IPID, LIVER #### [facility] [address] [place] [address] Dr. Josy Rivera LIVER PROFILEon 11-05-2022 Albumin [Mass/Vol] 4.1 g/dL Normal 3.4-5.0 [facility] Comment on above: Performed By: #### L IPID, LIVER #### [facility] [address] [place] [address] Dr. Josy Rivera Albumin/Globulin [Mass ratio] 1.4 {ratio} Normal [facility] Comment on above: Performed By: #### L IPID, LIVER #### [facility] [address] [place] [address] [address] Josy Rivera ALP [Catalytic activity/Vol] 50 U/L Normal 46-116 [facility] Comment on above: Performed By: #### L IPID, LIVER #### [facility] [address] [place] [address] [address] Josy Rivera ALT [Catalytic activity/Vol] 29 U/L Normal 16-63 [facility] Comment on above: Performed By: #### L IPID, LIVER #### [facility] [address] [place] [address] [address] Josy Rivera AST [Catalytic activity/Vol] 20 U/L Normal 15-37 [facility] Comment on above: Performed By: #### L IPID, LIVER #### [facility] [address] [place] [address] Dr. Josy Rivera BILI, CONJUGATED 0.2 mg/dL Normal 0.0-0.2 [facility] Comment on above: Performed By: #### L IPID, LIVER #### [facility] [address] [place] [address] Dr. Josy Rivera Bilirubin [Mass/Vol] 1.0 mg/dL Normal 0.2-1.0 [facility] Comment on above: Performed By: #### L IPID, LIVER #### [facility] [address] [place] [address] Dr. Josy Rivera Globulin (S) [Mass/Vol] 2.9 g/dL Normal [facility] Comment on above: Performed By: #### L IPID, LIVER #### [facility] [address] [place] [address] Dr. Josy Rivera Protein [Mass/Vol] 7.0 g/dL Normal 6.4-8.2 [facility] Comment on above: Performed By: #### L IPID, LIVER #### [facility] [address] [place] [address] Dr. Josy Rivera CBC AUTO DIFFon 12-06-2021 BASO # 0.0 103/ul Normal 0.0-0.1 [facility] Comment on above: Performed By: #### C BC #### [facility] [address] [place] [address] Dr. Josy Rivera Basophils/100 WBC (Bld) 0.5 % Normal 0.2-2.0 [facility] Comment on above: Performed By: #### C BC #### [facility] [address] [place] [address] [address] Josy Rivera EO # 0.2 103/ul Normal 0.0-0.7 [facility] Comment on above: Performed By: #### C BC #### [facility] [address] [place] [address] Dr. Josy Rivera Eosinophils/100 WBC (Bld) 2.9 % Normal 0.9-7.0 [facility] Comment on above: Performed By: #### C BC #### [facility] [address] [place] [address] Dr. Josy Rivera Erythrocyte distribution width (RBC) [Ratio] 13.1 % Normal 11.0-15.0 [facility] Comment on above: Performed By: #### C BC #### [facility] [address] [place] [address] Dr. Josy Rivera Hematocrit (Bld) [Volume fraction] 40.4 % Critically low 42.0-54.0 [facility] Comment on above: Performed By: #### C BC #### [facility] [address] [place] [address] Dr. Josy Rivera Hemoglobin (Bld) [Mass/Vol] 13.9 g/dL Critically low 14.0-18.0 [facility] Comment on above: Performed By: #### C BC #### [facility] [address] [place] [address] Dr. Josy Rivera IG # 0.03 10e3/ul Normal 0.00-0.03 [facility] Comment on above: Performed By: #### C BC #### [facility] [address] [place] [address] Dr. Josy Rivera IG % 0.4 % Normal 0.0-0.5 [facility] Comment on above: Performed By: #### C BC #### [facility] [address] [place] [address] Dr. Josy Rivera LYMPH # 2.3 103/ul Normal 1.2-3.8 [facility] Comment on above: Performed By: #### C BC #### [facility] [address] [place] [address] Dr. Josy Rivera Lymphocytes/100 WBC (Bld) 30.6 % Normal 20.5-60.0 [facility] Comment on above: Performed By: #### C BC #### [facility] [address] [place] [address] Dr. Josy Rivera MANUAL DIFF REQ NO Normal [facility] Comment on above: Performed By: #### C BC #### [facility] [address] [place] [address] Dr. Josy Rivera MCH (RBC) [Entitic mass] 31.0 pg Normal 25.9-34.0 [facility] Comment on above: Performed By: #### C BC #### [facility] [address] [place] [address] Dr. Josy Rivera MCHC (RBC) [Mass/Vol] 34.4 g/dL Normal 29.9-35.2 [facility] Comment on above: Performed By: #### C BC #### [facility] [address] [place] [address] Dr. Josy Rivera MCV (RBC) [Entitic vol] 90.0 fL Normal 80.0-94.0 [facility] Comment on above: Performed By: #### C BC #### [facility] [address] [place] [address] Dr. Josy Rivera MONO # 0.6 103/ul Normal 0.3-0.8 [facility] Comment on above: Performed By: #### C BC #### [facility] [address] [place] [address] Dr. Josy Rivera Monocytes/100 WBC (Bld) 8.1 % Normal 1.7-12.0 [facility] Comment on above: Performed By: #### C BC #### [facility] [address] [place] [address] Dr. Josy Rivera NEUT # 4.3 103/ul Normal 1.4-6.5 [facility] Comment on above: Performed By: #### C BC #### [facility] [address] [address] [address] Josy Rivera Neutrophils/100 WBC (Bld) 57.5 % Normal 43.0-75.0 [facility] Comment on above: Performed By: #### C BC #### [facility] [address] [address] [address] Josy Rivera Platelet mean volume (Bld) [Entitic vol] 10.6 fL Normal 9.5-13.5 [facility] Comment on above: Performed By: #### C BC #### [facility] [address] [address] [address] Josy Rivera PLT 275 103/ul Normal 150-450 [facility] Comment on above: Performed By: #### C BC #### [facility] [address] [place] [address] Dr. Josy Rivera RBC 4.49 106/ul Critically low 4.70-6.10 [facility] Comment on above: Performed By: #### C BC #### [facility] [address] [address] [address] oJsy Rivera WBC 7.5 103/ul Normal 4.0-11.0 [facility] Comment on above: Performed By: #### C BC #### [facility] [address] [place] [address] Dr. Josy Rivera GLYCOHEMOGLOBIN A1Con 2021 ADA RECOMMENDATION ADA THERAPEUTIC TARG ET 6.0 - 7.0 ACTION SUGGESTED > 7.[address] [facility] Comment on above: Performed By: #### A 1C #### [facility] [address] [place] [address] Dr. Josy Rivera Glucose [Mass/Vol] 108 mg/dL Normal [facility] Comment on above: Performed By: #### A 1C #### [facility] [address] [place] [address] Dr. Josy Rivera HbA1c (Bld) [Mass fraction] 5.4 % Normal <=6.0 [facility] Comment on above: Performed By: #### A 1C #### [facility] [address] [address] [address] Josy Rivera LIPID PROFILEon 12-06-2021 CHOL-HDL RATIO NORM SEE BELOW Normal [facility] Comment on above: Result Comment: 3.3 - 4.4 LOW RISK 4.4 - 7.1 AVERAGE RISK 7.1 - 11.0 MODERATE RISK >11.0 HIGH RISK Performed By: #### C MP, LIPID, TSH #### [facility] [address] [address] [address] Josy Rivera Cholesterol [Mass/Vol] 153 mg/dL Normal <=200 [facility] Comment on above: Performed By: #### C MP, LIPID, TSH #### [facility] [address] [address] [address] Josy Rivera Cholesterol in HDL [Mass/Vol] 37 mg/dL Critically low 40-60 [facility] Comment on above: Performed By: #### C MP, LIPID, TSH #### [facility] [address] [address] [address] Josy Rivera Cholesterol in LDL [Mass/Vol] 88.8 mg/dL Normal [facility] Comment on above: Performed By: #### C MP, LIPID, TSH #### [facility] [address] [address] [address] Josy Rivera Cholesterol.total/Cho lesterol in HDL [Mass ratio] 4.1 {ratio} Normal [facility] Comment on above: Performed By: #### C MP, LIPID, TSH #### [facility] [address] [address] [address] Josy Rivera HDL NORMAL > or = 60 mg/dl - LO W CARDIOVASCULAR RISK <40 mg/dl - HIGH CARDIOVASCULAR RISK Normal [facility] Comment on above: Performed By: #### C MP, LIPID, TSH #### [facility] [address] [address] [address] Josy Rivera LDL CALC NORMAL SEE BELOW Normal [facility] Comment on above: Result Comment: <100 mg/dl OPTIMAL 100 - 129 mg/dl NEAR OR ABOVE OPTIMAL 130 - 159 mg/dl BORDERLINE HIGH 160 - 189 mg/dl HIGH >190 mg/dl VERY HIGH Performed By: #### C MP, LIPID, TSH #### [facility] [address] [address] [address] Josy Rivera Triglyceride [Mass/Vol] 136 mg/dL Normal <=150 [facility] Comment on above: Performed By: #### C MP, LIPID, TSH #### [facility] [address] [address] [address] Josy Rivera VLDL CALC 27.2 mg/dL Normal [facility] Comment on above: Performed By: #### C MP, LIPID, TSH #### [facility] [address] [address] [address] Josy Rivera PROF 14(COMP METB)on 022 Albumin [Mass/Vol] 4.3 g/dL Normal 3.4-5.0 [facility] Comment on above: Performed By: #### C MP, LIPID, TSH #### [facility] [address] [place] [address] Dr. Josy Rivera Albumin/Globulin [Mass ratio] 1.4 {ratio} Normal [facility] Comment on above: Performed By: #### C MP, LIPID, TSH #### [facility] [address] [place] [address] Dr. Josy Rivera ALP [Catalytic activity/Vol] 56 U/L Normal 46-116 [facility] Comment on above: Performed By: #### C MP, LIPID, TSH #### [facility] [address] [place] [address] Dr. Josy Rivera ALT [Catalytic activity/Vol] 43 U/L Normal 16-63 [facility] Comment on above: Performed By: #### C MP, LIPID, TSH #### [facility] [address] [address] [address] Josy Rivera Anion gap [Moles/Vol] 13.3 mmol/L Normal [facility] Comment on above: Performed By: #### C MP, LIPID, TSH #### [facility] [address] [place] [address] Dr. Josy Rivera AST [Catalytic activity/Vol] 23 U/L Normal 15-37 [facility] Comment on above: Performed By: #### C MP, LIPID, TSH #### [facility] [address] [address] [address] Josy Rivera Bilirubin [Mass/Vol] 0.8 mg/dL Normal 0.2-1.3 [facility] Comment on above: Performed By: #### C MP, LIPID, TSH #### [facility] [address] [place] [address] Dr. Josy Rivera Calcium [Mass/Vol] 9.4 mg/dL Normal 8.5-10.1 [facility] Comment on above: Performed By: #### C MP, LIPID, TSH #### [facility] [address] [place] [address] Dr. Josy Rivera Chloride [Moles/Vol] 103 mmol/L Normal 98-107 [facility] Comment on above: Performed By: #### C MP, LIPID, TSH #### [facility] [address] [place] [address] Dr. Josy Rivera CO2 [Moles/Vol] 26.8 mmol/L Normal 22.0-30.0 [facility] Comment on above: Performed By: #### C MP, LIPID, TSH #### [facility] [address] [place] [address] Dr. Josy Rivera Creatinine [Mass/Vol] 0.88 mg/dL Normal 0.66-1.25 [facility] Comment on above: Performed By: #### C MP, LIPID, TSH #### [facility] [address] [place] [address] Dr. Josy Rivera EGFR-AF GREEK >60 Normal >=60 [facility] Comment on above: Performed By: #### C MP, LIPID, TSH #### [facility] [address] [place] [address] Dr. Josy Rivera EGFR-NON AF GREEK >60 Normal >=60 [facility] Comment on above: Performed By: #### C MP, LIPID, TSH #### [facility] [address] [place] [address] Dr. Josy Rivera Globulin (S) [Mass/Vol] 3.1 g/dL Normal [facility] Comment on above: Performed By: #### C MP, LIPID, TSH #### [facility] [address] [place] [address] Dr. Josy Rivera Glucose [Mass/Vol] 100 mg/dL Normal 74-106 [facility] Comment on above: Performed By: #### C MP, LIPID, TSH #### [facility] [address] [place] [address] Dr. Josy Rivera Potassium [Moles/Vol] 4.1 mmol/L Normal 3.4-5.0 [facility] Comment on above: Performed By: #### C MP, LIPID, TSH #### [facility] [address] [place] [address] Dr. Josy Rivera Protein [Mass/Vol] 7.4 g/dL Normal 6.1-8.2 [facility] Comment on above: Performed By: #### C MP, LIPID, TSH #### [facility] [address] [place] [address] Dr. Josy Rivera Sodium [Moles/Vol] 139 mmol/L Normal 137-145 [facility] Comment on above: Performed By: #### C MP, LIPID, TSH #### [facility] [address] [place] [address] Dr. Josy Rivera Urea nitrogen [Mass/Vol] 12.0 mg/dL Normal 7.0-18.0 [facility] Comment on above: Performed By: #### C MP, LIPID, TSH #### [facility] [address] [place] [address] Dr. Josy Rivera Urea nitrogen/Creatinine [Mass ratio] 13.6 mg/mg Normal [facility] Comment on above: Performed By: #### C MP, LIPID, TSH #### [facility] [address] [place] [address] Dr. Josy Rivera TSHon 12-06-2021 TSH 1.628 uIU/mL Normal 0.470-4.680 [facility] Comment on above: Performed By: #### C MP, LIPID, TSH #### [facility] [address] [place], [place] [address] Dr. Josy Rivera TSH RANGE SEE BELOW Normal [facility] Comment on above: Result Comment: <0.3 4 UIU/ml HYPERTHYROID 0.34-5.60 UIU/ml EUTHYROID >5.60 UIU/ml HYPOTHYROID Performed By: #### C MP, LIPID, TSH #### [facility] [address] [place], [place] [address] Dr. Josy Rivera Cult,Urineon 06-17-2019 Cult,Urine Specimen Description .VOIDED URINE Special Requests NOT REPORTED Culture NO SIGNIFICANT GROWTH Report Status FINAL 06/17/2019 Normal [facility] Comment on above: Performed By: #### U RC #### [facility] [employer] [address] [place] [address] Control Integration Engineer: Santiago Orosco MD [facility] [address] [place] [address] Control Integration Engineer: Nash Ruiz MD Urinalysis With Microscopico n 06-15-2019 Amorphous, UA NOT REPORTED None [facility] [place] [place] Bacteria, UA TRACE Abnormal None [facility] [place], [place] Bilirubin Urine Negative NEGATIVE [facility] [place], [place] Casts UA NOT REPORTED /LPF [facility] [place] Color, UA YELLOW YELLOW [facility]- [place], [place] Crystals UA NOT REPORTED None /HPF [facility]- [place], [place] Epithelial Cells UA None [facility], [place] Glucose, Ur Negative NEGATIVE [facility], [place] Interpretation and review of laboratory results Abnormal [facility]- [place] Ketones Ql (U) Negative NEGATIVE [facility]- [place], [place] Leukocyte esterase Test strip Ql (U) Negative NEGATIVE [facility]- [place] Mucus, UA TRACE Abnormal None [facility], [place] Nitrite, Urine Negative NEGATIVE [facility] [place], [place] Other Observations UA NOT REPORTED NOT REQ. M [facility]- [place], [place] pH, UA 6.0 [facility], [place] Protein (U) [Mass/Vol] Negative NEGATIVE [facility]- [place] RBC (U) [#/Vol] 0 TO 2 [facility] [place] [place] Renal Epithelial, Urine NOT REPORTED 0 /HPF [facility], [place] Specific [place], UA 1.020 [facility], [place] Trichomonas, UA NOT REPORTED None [facility] [place] Turbidity UA CLEAR CLEAR [facility], [place] Urinalysis Comments NOT REPORTED [facility], [place] Urine Hgb Negative NEGATIVE [facility], [place] Urobilinogen, Urine Normal Normal [place], [place] WBC, UA 0 TO 2 [facility], [place] Yeast, UA NOT REPORTED None [facility], [place] - [facility], [place] Urinalysis w/ Microon 2018 ----- Normal [facility] Comment on above: Performed By: #### U AMIC #### [facility] [address] [place] [address] Control Integration Engineer: Nash Ruiz MD Acetoacetic Acid,Ur Negative Normal NEG [facility] Comment on above: Performed By: #### U AMIC #### [facility] [address] [place] [address] Control Integration Engineer: Nash Ruiz MD Bacteria LM.HPF (Urine sed) [#/Area] TRACE Abnormal [facility] Comment on above: Performed By: #### U AMIC #### [facility] [address] [place] [address] [place] [address] Control Integration Engineer: Nash Ruiz MD Bilirubin, SemiQt,Ur Negative Normal NEG [facility] Comment on above: Performed By: #### U AMIC #### [facility] [address] [place] [address] Control Integration Engineer: Nash Ruiz MD Color (U) YELLOW Normal L [facility] Comment on above: Performed By: #### U AMIC #### [facility] [address] [place] [address] Control Integration Engineer: Nash Ruiz MD Epithelial cells LM.HPF (Urine sed) [#/Area] None Normal 0-5 [facility] Comment on above: Performed By: #### U AMIC #### [facility] [address] [place] [address] Control Integration Engineer: Nash Ruiz MD Glucose Ql (U) Negative Normal NEG [facility] Comment on above: Performed By: #### U AMIC #### [facility] [address] [place] [address] Control Integration Engineer: Nash Ruiz MD Hemoglobin, Ur Negative Normal NEG [facility] Comment on above: Performed By: #### U AMIC #### [facility] [address] [place] [address] Control Integration Engineer: Nash Ruiz MD Leukocyte esterase Test strip Ql (U) Negative Normal NEG [facility] Comment on above: Performed By: #### U AMIC #### [facility] [address] [place] [address] Control Integration Engineer: Nash Ruiz MD Mucus Strands TRACE Abnormal NONE [facility] Comment on above: Performed By: #### U AMIC #### [facility] [address] [place] [address] Control Integration Engineer: Nash Ruiz MD Nitrite,Ur Negative Normal [facility] Comment on above: Performed By: #### U AMIC #### [facility] [address] [place] [address] Control Integration Engineer: Nash Ruiz MD pH (U) 6.0 [pH] Normal 5.0-9.0 [facility] Comment on above: Performed By: #### U AMIC #### [facility] [address] [place] [address] Control Integration Engineer: Nash Ruiz MD Protein Ql (U) Negative Normal NEG [facility] Comment on above: Performed By: #### U AMIC #### [facility] [address] [place], [place] [id number] Control Integration Engineer: Nash Ruiz MD RBC (U) [#/Vol] 0 TO 2 Normal 0-2 [facility] Comment on above: Performed By: #### U AMIC #### [facility] [address] [place] [id number] Control Integration Engineer: Nash Ruiz MD Specific gravity (U) [Rel density] 1.020 Normal 1.010-1.020 [facility] Comment on above: Performed By: #### U AMIC #### [facility] [address] [place] [place] [id number] Control Integration Engineer: Nash Ruiz MD Turbidity CLEAR Normal CLEAR [facility] Comment on above: Performed By: #### U AMIC #### [facility] [address] [place] [place] [id number] Control Integration Engineer: Nash Ruiz MD Urobilinogen,Ur Normal Normal NORM [facility] Comment on above: Performed By: #### U AMIC #### [facility] [address] [place] [address] [address] [id number] Control Integration Engineer: Nash Ruiz MD WBC (U) [#/Vol] 0 TO 2 Normal 0-5 [facility] Comment on above: Performed By: #### U AMIC #### [facility] [address] [place] [address] Control Integration Engineer: Nash Ruiz MD Amorphous sediment LM Ql (Urine sed) NOT REPORTED Normal NONE [facility] Comment on above: Performed By: #### U AMIC #### [facility] [address] [place] [id number] Control Integration Engineer: Nash Ruiz MD Casts LM.LPF (Urine sed) [#/Area] NOT REPORTED Normal [facility] Comment on above: Performed By: #### U AMIC #### [facility] [address] [place] [facility] Control Integration Engineer: Nash Ruiz MD Comment NOT REPORTED Normal [facility] Comment on above: Performed By: #### U AMIC #### [facility] [address] [place] [address] Control Integration Engineer: Nash Ruiz MD Crystals LM Nom (Urine sed) NOT REPORTED Normal NONE [facility] Comment on above: Performed By: #### U AMIC #### [facility] [address] [place] [address] Control Integration Engineer: Nash Ruiz MD Epithelial, Renal NOT REPORTED Normal 0 [facility] Comment on above: Performed By: #### U AMIC #### [facility] [address] [place], [place] [id number] Control Integration Engineer: Nash Ruiz MD Other Observations NOT REPORTED Normal NREQ [facility] Comment on above: Performed By: #### U AMIC #### [facility] [address] [place], [place] [id number] Control Integration Engineer: Nash Ruiz MD Trichomonas NOT REPORTED Normal NONE [facility] Comment on above: Performed By: #### U AMIC #### [facility] [address] [place], [place] [id number] Control Integration Engineer: Nash Ruiz MD Yeast LM Ql (Urine sed) NOT REPORTED Normal [facility] Comment on above: Performed By: #### U AMIC #### [facility] [address] [place], [place] [id number] Control Integration Engineer: Nash Ruiz MD Vital Signs Date Time Vital Sign Value Performing Clinician Facility 11-20-2023 14:14-0400 Blood Pressure Location [facility] 11-20-2023 14:14-0400 Body temperature 97.16 [degF] [facility] 11-20-2023 14:14-0400 Diastolic blood pressure 98 mm[Hg] [facility] 11-20-2023 14:14-0400 Heart rate 68 /min [facility] 11-20-2023 14:14-0400 Respiratory rate 18 /min [facility] 11-20-2023 14:14-0400 Systolic blood pressure 139 mm[Hg] [facility] 11-14-2022 13:41-0400 Blood Pressure Location [facility] 11-14-2022 13:41-0400 Diastolic blood pressure 83 mm[Hg] [facility] 11-14-2022 13:41-0400 Heart rate 65 /min [facility] 11-14-2022 13:41-0400 Systolic blood pressure 149 mm[Hg] [facility] 06-18-2022 12:26-0400 Blood Pressure Location [facility] 06-18-2022 12:26-0400 Diastolic blood pressure 90 mm[Hg] [facility] 06-18-2022 12:26-0400 Heart rate 67 /min [facility] 06-18-2022 12:26-0400 Systolic blood pressure 158 mm[Hg] [facility] 08-29-2021 09:15-0500 Body weight 106.14 kg Shantal Lopez Other [facility] Other Encounters Encounter Date Encounter Type Care Provider Facility Start: 11-27-2024 ambulatory [facility] Start: 11-18-2024 ambulatory [facility] Start: 11-11-2024 End: 11-11-2024 ambulatory TRACY [facility] Start: 07-07-2024 End: 07-07-2024 Orders Only Nahed Mera MD Work Phone: [employer] Comment on above: Pain (Primary Dx) Tendinopathy of righ t rotator cuff (Primary Dx) Pain [R52] Start: 07-01-2024 End: 07-07-2024 Telephone encounter Nahed Mera MD Work Phone: [employer] Start: 03-05-2024 End: 03-05-2024 Patient encounter procedure DO Chau Ball Work Phone: [facility] [employer] Work Phone: Start: 03-05-2024 End: 03-05-2024 ambulatory DO Chau Ball Work Phone: [facility] Work Phone: Start: 12-17-2023 Non-patient / Non-visit DO Chau Ball Work Phone: [facility] Work Phone: Start: 12-03-2023 End: 12-03-2023 ambulatory DO Chau Ball Work Phone: [facility] Work Phone: Start: 12-03-2023 End: 12-03-2023 Patient encounter procedure DO Chau Ball Work Phone: [facility] Work Phone: Start: 11-20-2023 End: 11-20-2023 Lab Drop off Wild GANDARA [facility] Start: 11-20-2023 End: 11-20-2023 ambulatory Wild GANDARA Facility:[facility] Start: 11-20-2023 End: 11-20-2023 Patient encounter procedure Wild GANDARA [facility] Start: 11-13-2023 End: 11-13-2023 ambulatory [facility] Start: 08-27-2023 End: 08-27-2023 ambulatory Shantal Lopez Other [employer] Other Start: 08-27-2023 Office outpatient visit 15 minutes Shantal Lopez [facility] Start: 07-05-2023 End: 07-05-2023 ambulatory Chau Regalado Other [employer] Other Start: 07-05-2023 Telephone encounter Chau Regalado [facility] Start: 03-18-2023 End: 03-18-2023 ambulatory Jena Jackson Other [employer] Other Start: 03-18-2023 Office outpatient visit 15 minutes Jena Jackson [facility] Start: 11-14-2022 End: 11-14-2022 Patient encounter procedure Wild GANDARA [facility] Start: 11-05-2022 End: 11-06-2022 ambulatory SANGEETHA DESAI Facility:[facility] Start: 07-09-2022 End: 07-10-[address] WILD GANDARA . Facility:[facility] Start: 07-04-2022 End: 07-04-2022 Patient encounter procedure Wild GANDARA [facility] Start: 06-18-2022 End: 06-18-2022 Patient encounter procedure Wild GANDARA [facility] Start: 06-11-2022 End: 06-11-2022 ambulatory Shantal Olexa Other [employer] Other Start: 06-11-2022 Office outpatient visit 15 minutes Shantal Jessica [facility] Start: 05-08-2022 End: 05-08-2022 Patient encounter procedure CHAU REGALADO [facility] Start: 04-19-[address] CHAU REGALADO [facility] ty:[facility] Start: 2022 End: 2022 ambulatory SHANTAL OLEXA [facility] Other Start: 2022 Office outpatient visit 15 minutes Shantal Olexa [facility] Start: 02-16-2022 ambulatory SANGEETHA LLOYD Facility :[facility] Start: 12-06-2021 End: 12-07-[address] DOCTOR MARIE Facility:[facility] Start: 08-29-2021 End: 08-29-2021 ambulatory Shantal Olexa Other [place] [employer] Other Start: 08-29-2021 Office outpatient visit 15 minutes Shantal Olexa [facility] Start: 06-15-2019 End: 06-16-2019 Patient encounter procedure DAVID MARES [facility] Start: 06-15-2019 End: 06-15-2019 Subsequent hospital visit by physician Chau Regalado [facility] Comment on above: Scrotal abscess Procedures Date Procedure Procedure Detail Performing Clinician Start: 03-05-2024 MRI of right shoulder D O Chau Regalado Work Phone: Start: 12-03-2023 Plain X-ray of right shoulder DO Chau Regalado Work Phone: Start: 07-09-[address] TIERNEY GANDARA . Comment on above: Performed By: #### P SAD #### [facility] [address] [address] [address] Josy Rivear Start: 07-04-2022 Cystoscopy Wild MIGDALIA SHELTON Start: 06-15-2019 Culture bacterial quanttative colony count urine DAVID MARES Start: 06-15-2019 Urnls dip stick/tabl et reagent auto microscopy David Billy Mares Work Phone: Start: 12-29-2018 General examination of patient Jena Jackson Other Knee region structur e (body structure) Wild GANDARA Screening for malign ant neoplasm of colon Jena Jackson Other Wrist region structu re (body structure) Wild GANDARA Plan of Treatment Date Care Activity Detail Author Start: 04-19-2024 Covid-19 Vaccine ( season) Covid-19 Vaccine ( season) [facility] Start: 04-19-2024 Influenza vaccination Influenza Vacc ine (#1) [facility] Start: 02-21-2024 Prostate specific antigen measurement Prostate Cancer Screening Discussion [facility] Start: 12-03-2023 Plain X-ray of right shoulder XR shoulder RT min 2V* [facility] Start: 12-03-2023 XR Shoulder - right Views [facility] Start: 06-29-2019 End: 06-29-2019 Office Visit 06/29/2019 Office Visit Urology Shantal Akhtar MD [address] [place] [id number] [facility] Start: 04-19-2019 Influenza vaccination Flu vaccine (# 1) [facility] Start: 2019 Colon cancer screen colonoscopy Colon cancer screen colonoscopy [place], [place] Start: 2019 Shingles Vaccine (1 of 2) Shingles Vaccine (1 of 2) [place], [place] Start: 2019 Shingrix Vaccine (1 of 2) Shingrix Vaccine (1 of 2) [facility] Start: 2014 Diabetes Screening Diabetes Screenin g [facility] Start: 2014 Screening for malign ant neoplasm of colon [facility] Start: 2009 Diabetes screen Diabetes screen [place], [place] Start: 02-21-2004 Lipid panel Lipid Screening [facility] Start: 12-23-2002 Hepatitis B Vaccine (4 of 4 - Hep B Twinrix 4-dose series) Hepatitis B Vaccine (4 of 4 - Hep B Twinrix 4-dose series) [facility] Start: 02-21-1988 DTaP/Tdap/Td vaccine (1 - Tdap) DTaP/Tdap/Td vaccine (1 - Tdap) [place], [place] Start: 02-21-1988 Urine microalbumin profile DTaP,Tdap,Td Vaccine (1 - Tdap) [facility] Start: 1987 Anxiety Screening Anxiety Screening [facility] Start: 1987 Depression Screening Depression Scre ening [facility] Start: 1987 Hepatitis C screening Hepatitis C Sc reening [facility] Start: 1987 HIV screening HIV Screening [facility] Start: 02-21-1984 HIV screen HIV screen [place], [place] Start: 1979 Lipid screen Lipid screen [place], [place] Start: 1969 Creatinine monitoring Creatinine mon itoring [place], [place] Start: 1969 Potassium monitoring Potassium monit oring [place], [place] End: 06-15-2019 Bacteria identified Cx Nom (U) Urine Culture Microbiology Routine Scrotal abscess 1 Occurrences starting 06/15/2019 until 06/15/2019 [place], [place] Comment on above: 1 Occurrences starti ng 06/15/2019 until 06/15/2019 Bacteria identified Cx Nom (U) Urine Culture Microbiology Routine Scrotal abscess 06/15/2019 1:00 PM EDT [place], [place] MR Shoulder - right WO [facility] End: 08-06-2025 XR Shoulder - right 3 Views XR SHOULDER GENERAL 3V OR MORE AP/TRUE AP/OTHER RIGHT Radiology Routine Pain 1 Occurrences starting 07/07/2024 until 08/06/2025 [facility] Work Phone: Comment on above: 1 Occurrences starti ng 07/07/2024 until 08/06/2025 XR Shoulder - right 3 Views XR SHOULDER GENERAL 3V OR MORE AP/TRUE AP/OTHER RIGHT Radiology Routine Pain 07/07/2024 10:52 AM EST [facility] Immunizations Immunization Date Immunization Notes Care Provider Brittney cutler 01-04-2012 hepatitis A and hepatitis B vaccine Wild GANDARA [facility] 11-23-2011 hepatitis A and hepatitis B vaccine Wild GANDARA [facility] 12-23-2001 hepatitis A and hepatitis B vaccine Wild GANDARA [facility] Payers Date Payer Category Payer Self-pay 2022 Unknown ANTHEM BLUE ACCE SS PPO [id number] 2022-Present [phone] [address] [place] [address] PPO [id number] 2022 Blue Cross Blue Shield [id number] 2022 Unknown [id number] 2019 Unknown [id number] 2018 Unknown [id number] 2018 Unknown [employer] BENE FIT [employer] BENEFIT xxxxxxxxx 2018-Present [phone] [address] [place] [address] xxxxxxxxx [id number] 1969 Unknown [id number] [id number]. 173 1969 Unknown [id number] 2.16.840.1.525058.3.579.2. 593 1969 Unknown [id number] 2.16.840.1.493487.3.579.2. 593 1969 Unknown [id number] 2.16.840.1.323445.3.579.2. 593 1969 Unknown [id number] 2.16.840.1.911940.3.579.2. 593 1969 Unknown [id number] 2.16.840.1.510158.3.579.2. 593 1969 Unknown [id number] 2.16.840.1.010215.3.579.2. 593 1969 Unknown [id number] 2.16.840.1.684519.3.579.2. 727 1969 Unknown [id number] 2.16.840.1.094875.3.579.2. 727 1969 Unknown [id number] 2.16.840.1.342588.3.579.2. 727 1969 Unknown [id number] 2.16.840.1.043558.3.579.2. 727 1959 Self-pay [id number] Unknown [id number] [id number]. 531 Unknown [id number]. 531 Social History Date Type Detail Facility Start: 06-15-2019 End: 11-20-2023 Tobacco smoking status NHIS Never smoker [facility] Start: 06-15-2019 [facility] Start: 06-15-2019 [facility] Start: [facility] Sex Assigned At Not on file [facility] [place], [place] Tobacco smoking status No Smoking Status Entered [facility] Tobacco smoking status Never [facility] Start: 1970 Sex Assigned At Male F [facility] Tobacco smoking status NHIS Tobacco smoking consumption unknown [facility] Functional Status Date Assessment Result Facility 11-20-2023 Functional Status N/A [facility] 11-14-2022 Functional Status N/A [facility] 07-04-2022 Functional Status N/A [facility] 06-18-2022 Functional Status N/A [facility] Clinical Notes 08-29-2021 to 11-11-2024 Nahed Mera MD - 07/07/2024 12:08 PM Ita Florez MD - 07/07/2024 11:06 AM Ema Phillips RT(R) - 07/07/2024 10:45 AM EST Note Date & Type Note Facility 11-11-2024 Note SUBJECTIVE Reason for Visit: Shantal Leonard is a 54 y.o. year old male patient being seen for 1 year follow-up visit. HPI: Shantal Leonard is a 54 y.o. year old male with significant medical history of CAD s/p stent 05/2016 to lad and rca 07/2016, HTN, HLD, and palpitations. 11/11/2024 office visit: Patient was seen and evaluated in the office today. He reports feeling well overall and has no current complaints. He denies chest pain, shortness of breath, palpitations, lightheadedness, dizziness, or lower extremity edema. He has no specific concerns at this visit. We discussed cardiovascular risk reduction, and he is aware that weight loss would significantly help reduce his long-term risk. He appears motivated, and I provided counseling on dietary modifications to support this goal. He has not followed up with a primary care provider in over a year. I offered the option of obtaining basic labs as part of his preventive care today, which he agreed to. He plans to complete the lab work in the coming days. 11/13/2023 office visit (Dr. Greenfield): No exertional chest pain or shortness of breath, no significant lightheadedness or dizziness. Has intermittent palpitations. Family history: His father had 5 vessel bypass in his 50s. Mr. Akins is not diabetic, he does not smoke. He says that he is put on weight since last year gradually due to increased p.o. intake. Past Medical History: Diagnosis Date Coronary artery disease Hyperlipidemia Hypertension Past Surgical History: Procedure Laterality Date APPENDECTOMY CARDIAC CATHETERIZATION CORONARY STENT PLACEMENT HAND SURGERY HERNIA REPAIR KNEE SURGERY Patient Active Problem List Diagnosis BPH with urinary obstruction Dysuria Erectile dysfunction Family history of prostate cancer Gross hematuria Kidney cysts Kidney stones Prostatitis Asymptomatic microscopic hematuria Coronary arteriosclerosis in [place] artery family history includes CABG in his father; Coronary artery disease in his father; Heart attack in his father's brother; Prostate cancer in his father. Social History Tobacco Use Smoking status: Never Smokeless tobacco: Never Substance Use Topics Alcohol use: Yes Comment: occasional OBJECTIVE Visit Vitals BP 123/77 (BP Location: Right arm, Patient Position: Sitting) Pulse 78 Ht 1.803 m (5' 11 ) Wt 130 kg (287 lb) SpO2 99% BMI 40.03 kg/m??? Smoking Status Never BSA 2.55 m??? Physical Exam Constitutional: General Appearance: well-developed, appears stated age. Level of Distress: no acute distress. Neck: Jugular Veins: normal jugular venous pressure. Lungs: Auscultation: no rales or rhonchi and normal breath sounds. Cardiovascular: Rate And Rhythm: regular Heart Sounds: normal S1 and s2; Systolic Murmur: not heard. Diastolic Murmur: not heard. Extremities: no edema Peripheral Pulses: Pulses: full and equal in all extremities except if noted. Abdomen: Inspection and Palpation: non distended or tender and soft. Musculoskeletal: Inspection: no joint tenderness or swelling. Neurologic: Gait: normal gait. Psychiatric: Mental Status: alert and normal affect. Skin: Inspection and Palpation: warm and dry. Allergies: Allergies Allergen Reactions Penicillins Rash and Unknown Itching/rash Outpatient Medications: Current Outpatient Medications Medication Instructions aspirin 81 mg, oral, Daily atorvastatin (LIPITOR) 80 mg, oral, Nightly carvedilol (COREG) 3.125 mg, oral, 2 times daily RT ezetimibe (ZETIA) 10 mg, oral, Once Daily lisinopril 10 mg, oral, Once Daily tadalafil (CIALIS) 10 mg, oral, Daily PRN tamsulosin (FLOMAX) 0.4 mg, oral, 2 times daily RT Recent Labs: No visits with results within 2 Month(s) from this visit. Latest known visit with results is: No results found for any previous visit. I have personally reviewed and interpreted the following laboratory results: CBC, CMP, lipid profile, and any additional relevant lab work available at this time. These findings have been analyzed in the context of the patient's clinical presentation. Cardiovascular Diagnostic Studies: Stress test 06/12/2016: Conclusion: Findings suspicious for partial reversible ischemia inferior wall and apex, RCA and LAD distributions Abnormal exercise test secondary to EKG changes Coronary angiogram 08/15/2016: Coronary angiogram 06/12/2016: TTE 12/17/2023: Conclusion: Global left ventricular systolic function is normal; visually estimated ejection fraction is 55 to 60% Normal right ventricular size and systolic function Normal diastolic function No significant valvular abnormalities 12 Lead ECG: No results found for this or any previous visit (from the past 4464 hour(s)). I have personally reviewed and interpreted all available cardiac diagnostic tests and imaging reports. Findings have been analyzed in the context of the patient's clinical stat (more content not included)... [facility] 07-07-2024 Note HNO ID: [id number] Author: NAHED MERA MD Service: ? Author Type: Physician Type: Progress Notes Filed: 07/07/2024 12:09 Note Text: Assessment/Primary Diagnosis: (M67.911) Tendinopathy of right rotator cuff (primary encounter diagnosis) Fellow/resident history and physical examination reviewed and confirmed by the attending physician. The attending physician obtained additional history and performed focused physical examination. All imaging and laboratory studies were reviewed by the attending physician with fellow/resident and the patient. Treatment care plan discussed with the fellow/resident and completely explained to the patient. The attending physician was present for and supervised any injections. All of the patient's questions were answered by the attending physician. [facility] 07-07-2024 History of Present illness Narrative Assessment/Primary Diagnosis: (M67.911) Tendinopathy of right rotator cuff (primary encounter diagnosis) Fellow/resident history and physical examination reviewed and confirmed by the attending physician. The attending physician obtained additional history and performed focused physical examination. All imaging and laboratory studies were reviewed by the attending physician with fellow/resident and the patient. Treatment care plan discussed with the fellow/resident and completely explained to the patient. The attending physician was present for and supervised any injections. All of the patient's questions were answered by the attending physician. Nahed Mera M.D. global vp creative + content marketing [facility] [address] [facility] [place] [address] INITIAL ENCOUNTER FOR A NEW SHOULDER PROBLEM Chief Complaint: Right shoulder pain HPI: Shantal Leonard is seen at the request of Nahed Mera for consultation regarding the above problem. Findings and recommendations will be communicated back to the referring provider via availability in the shared electronic medical record. Shantal Leonard is a 54 year old male who presents with the above complaint. Hand dominance: Right. Reports atraumatic right shoulder pain x 4 months. Has been seeing an outside orthopaedic provider and has received multiple steroid injections to the shoulder over the past 4 years every 6 months (about 8-10). Recently had a shoulder massage with complete relief of his pain and improved range of motion as well. Last CSI was October 2023 and has not needed one since. Here for second opinion as he was told he would benefit from rotator cuff repair. He denies having any neck pain, radicular pain, numbness/tingling in the arm. Patient does not note any associated mechanical symptoms. All available outside records have been reviewed. REVIEW OF SYSTEMS: Constitutional: patient denies any recent fever or significant change in weight Cardiovascular: patient denies any chest pain at rest Respiratory: patient denies any shortness of breath or cough Gastrointestinal: patient denies any current abdominal discomfort Integumentary: patient denies any recent skin changes Musculoskeletal: as noted in the HPI Neurologic: as noted in the HPI Endocrine: patient denies a current diagnosis of diabetes Hematologic/Lymphatic: patient denies any easily bleeding, any recent infection and denies any recent observable lymph node enlargement Psychologic: negative for any recent depression or anxiety issues No family history on file. No past medical history on file. No past surgical history on file. ALLERGIES Allergen Reactions Penicillins Rash, Unknown Itching/rash Problem List: reviewed and updated. Contributory Co-morbidities: Assessed as indicated; currently managed. Social History: Physical Activity/Sports/Exercise: recreational Occupation: owns [employer] Current Outpatient Medications Medication Sig amLODIPine (NORVASC) 5 mg tablet Take 1 tablet by mouth once daily. aspirin, enteric coated (ASPIRIN, ENTERIC COATED) 81 mg EC tablet Take 81 mg by mouth once daily. lisinopril (ZESTRIL) 10 mg tablet Take 10 mg by mouth once daily. carvedilol (COREG) 3.125 mg tablet Take 3.125 mg by mouth two times a day with meals. atorvastatin (LIPITOR) 80 mg tablet Take 80 mg by mouth daily at bedtime. Tadalafil (CIALIS) 10 mg tablet Take 10 mg by mouth once daily as needed. tamsulosin (FLOMAX) 0.4 mg Take 0.4 mg by mouth two times a day. No current facility-administered medications for this visit. Physical Exam: There were no vitals taken for this visit. Constitutional: Pleasant, well-appearing, no acute distress. Resp: breathing is unlabored without audible wheeze Vascular: Normal pedal and radial pulses, no cyanosis, no venous stasis changes Skin: No overlying skin change, ecchymosis, or erythema. Psychiatric: Pleasant, direct, appropriate mood and affect General Orthopaedic Examination: Ambulates well. No other major joint abnormalities noted. 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 Pulses: 2+ radial, ulnar; hands warm bilat, <2sec CR Compartments: soft and compressible Cervical Spine:Appropriate range of motion, negative midline and paraspinal muscle tenderness, negative stepoff, and negative Spurling's test. Focused Upper Extremity Musculoskeletal/Neurologic Exam: Contra-lateral shoulder wnl. Examination of the involved shoulder demonstrates : Upright posture. No significant atrophy, winging or obvious deformity. No significant passive stiffness. Full active range of motion- 180 degrees forward elevation, T6 IR, 45 degrees ER bilaterally. Mild pain with resisted abduction and forward elevation Strength 5/5 abduction, 5/5 external rotation with the elbow at the side. No lag signs. Negative belly press, lift off and bear hug tests. Negative Speeds test. Negative Yergason's test. No biceps Evgeny deformity. Mild tenderness over the greater tuberosity. Calvillo test and Neer test are negative. No tenderness or instability of the acromioclavicular or sternoclavicular joint. Radiographic studies: Plain Radiographs of the involved shoulder were reviewed and interpreted by me and discussed with patient. Findings:No fracture or dislocation. MRI of the involved shoulder was reviewed and interpreted by me and discussed with patient. Findings include partial tearing versus high grade tendinopathy at the musculotendinous junction of the supraspinatus tendon. No evidence of full thickness tearing or retraction. Assessment/Primary Diagnosis: (M67.911) Tendinopathy of right rotator cuff (primary encounter diagnosis) Plan/Medical Decision Making: The nature of the problem and all indicated treatment options available were discussed in detail with the patient. Discussed MRI findings more consistent with partial tear or high grade tendinopathy as opposed to full thickness rotator cuff tear. Discussed plan for activity as tolerated with consult with physical therapy to continue to work on range of motion and strengthening. Discussed that arthroscopic intervention is unlikely to provide benefit at this stage. Test(s)/Imaging/Referral(s): physical therapy referral 2. Intervention: physical therapy 3. Follow-up: as needed All of Shantal Leonard questions were answered today. He expressed a clear understanding of our discussion and is in agreement with the outlined treatment plan. Ita Palmer MD CC:Nahed Mear documented in this encounter [facility] 07-07-2024 Note HNO ID: [id number] Author: ITA PALMER MD Service: ? Author Type: Resident Type: Progress Notes Filed: 07/07/2024 12:09 Note Text: Nahed Mera M.D. global vp creative + content marketing [facility] [address] [place] [address] INITIAL ENCOUNTER FOR A NEW SHOULDER PROBLEM Chief Complaint: Right shoulder pain HPI: Shantal Leonard is seen at the request of Nahed Mera for consultation regarding the above problem. Findings and recommendations will be communicated back to the referring provider via availability in the shared electronic medical record. Shantal Leonard is a 54 year old male who presents with the above complaint. Hand dominance: Right. Reports atraumatic right shoulder pain x 4 months. Has been seeing an outside orthopaedic provider and has received multiple steroid injections to the shoulder over the past 4 years every 6 months (about 8-10). Recently had a shoulder massage with complete relief of his pain and improved range of motion as well. Last CSI was October 2023 and has not needed one since. Here for second opinion as he was told he would benefit from rotator cuff repair. He denies having any neck pain, radicular pain, numbness/tingling in the arm. Patient does not note any associated mechanical symptoms. All available outside records have been reviewed. REVIEW OF SYSTEMS: Constitutional: patient denies any recent fever or significant change in weight Cardiovascular: patient denies any chest pain at rest Respiratory: patient denies any shortness of breath or cough Gastrointestinal: patient denies any current abdominal discomfort Integumentary: patient denies any recent skin changes Musculoskeletal: as noted in the HPI Neurologic: as noted in the HPI Endocrine: patient denies a current diagnosis of diabetes Hematologic/Lymphatic: patient denies any easily bleeding, any recent infection and denies any recent observable lymph node enlargement Psychologic: negative for any recent depression or anxiety issues No family history on file. No past medical history on file. No past surgical history on file. ALLERGIES Allergen Reactions Penicillins Rash, Unknown Itching/rash Problem List: reviewed and updated. Contributory Co-morbidities: Assessed as indicated; currently managed. Social History: Physical Activity/Sports/Exercise: recreational Occupation: owns [employer] Current Outpatient Medications Medication Sig amLODIPine (NORVASC) 5 mg tablet Take 1 tablet by mouth once daily. aspirin, enteric coated (ASPIRIN, ENTERIC COATED) 81 mg EC tablet Take 81 mg by mouth once daily. lisinopril (ZESTRIL) 10 mg tablet Take 10 mg by mouth once daily. carvedilol (COREG) 3.125 mg tablet Take 3.125 mg by mouth two times a day with meals. atorvastatin (LIPITOR) 80 mg tablet Take 80 mg by mouth daily at bedtime. Tadalafil (CIALIS) 10 mg tablet Take 10 mg by mouth once daily as needed. tamsulosin (FLOMAX) 0.4 mg Take 0.4 mg by mouth two times a day. No current facility-administered medications for this visit. Physical Exam: There were no vitals taken for this visit. Constitutional: Pleasant, well-appearing, no acute distress. Resp: breathing is unlabored without audible wheeze Vascular: Normal pedal and radial pulses, no cyanosis, no venous stasis changes Skin: No overlying skin change, ecchymosis, or erythema. Psychiatric: Pleasant, direct, appropriate mood and affect General Orthopaedic Examination: Ambulates well. No other major joint abnormalities noted. 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 Pulses: 2+ radial, ulnar; hands warm bilat, <2sec CR Compartments: soft and compressible Cervical Spine:Appropriate range of motion, negative midline and paraspinal muscle tenderness, negative stepoff, and negative Spurling's test. Focused Upper Extremity Musculoskeletal/Neurologic Exam: Contra-lateral shoulder wnl. Examination of the involved shoulder demonstrates : Upright posture. No significant atrophy, winging or obvious deformity. No significant passive stiffness. Full active range of motion- 180 degrees forward elevation, T6 IR, 45 degrees ER bilaterally. Mild pain with resisted abduction and forward elevation Strength 5/5 abduction, 5/5 external rotation with the elbow at the side. No lag signs. Negative belly press, lift off and bear hug tests. Negative Speeds test. Negative Yergason's test. No biceps Evgeny deformity. Mild tenderness over the greater tuberosity. Calvillo test and Neer test are negative. No tenderness or instability of the acromioclavicular or sternoclavicular joint. Radiographic studies: Plain Radiographs of the involved shoulder were reviewed and interpreted by me and discussed with patient. Findings:No fracture or dislocation. MR (more content not included)... [facility] 07-07-2024 History of Present illness Narrative Radiology Service Progress Note PATIENT NAME: Shantal Leonard DATE OF SERVICE: July 07, 2024 TIME: 10:53 AM PATIENT IDENTITY VERIFICATION COMPLETED USING TWO (2) IDENTIFIERS: Name and Date of confirmed by patient verbally. FALL SCREENING: Has the patient had 2 falls in the last year or 1 fall with injury or currently using an Ambulatory Assistive Device (Walker, Cane, Wheelchair, Crutches, etc.)? No PATIENT GENDER DATA: Male PATIENT RELEVANT IMPLANT DATA REVIEWED: Not Applicable PATIENT PRESENTS WITH AN IMPLANTABLE OR ATTACHED SPECIAL SHOPPER: No RADIOLOGY DEPARTMENT: General X-ray: Exam(s) Completed: Upper Extremity X-Ray(s): Shoulder, AP / TRUE AP / AXILLARY right PERIPHERAL IV DATA: Not applicable SIGNED BY: RT Margarito(R) July 07, 2024 10:53 AM documented in this encounter [facility] 07-07-2024 Note HNO ID: [id number] Author: EMA OWENS RT (R) Service: ? Author Type: Technologist Type: Progress Notes Filed: 07/07/2024 10:54 Note Text: Radiology Service Progress Note PATIENT NAME: Shantal Leonard DATE OF SERVICE: July 07, 2024 TIME: 10:53 AM PATIENT IDENTITY VERIFICATION COMPLETED USING TWO (2) IDENTIFIERS: Name and Date of confirmed by patient verbally. FALL SCREENING: Has the patient had 2 falls in the last year or 1 fall with injury or currently using an Ambulatory Assistive Device (Walker, Cane, Wheelchair, Crutches, etc.)? No PATIENT GENDER DATA: Male PATIENT RELEVANT IMPLANT DATA REVIEWED: Not Applicable PATIENT PRESENTS WITH AN IMPLANTABLE OR ATTACHED SPECIAL SHOPPER: No RADIOLOGY DEPARTMENT: General X-ray: Exam(s) Completed: Upper Extremity X-Ray(s): Shoulder, AP / TRUE AP / AXILLARY right PERIPHERAL IV DATA: Not applicable SIGNED BY: RT Margarito(R) July 07, 2024 10:53 AM [facility] 07-06-2024 Telephone encounter Note Tried calling patient again no answer. Will try again later. [facility] 07-06-2024 Miscellaneous Notes Tried calling patient again no answer. Will try again later. LM for for patient to call office back. Patient to bring in CD for appointment. Need to know what location images were done at and if they are xray or MRI images. Also, need patient to bring report with disc. Waiting for patient to call back with response to message. documented in this encounter [facility] 07-01-2024 Telephone encounter Note LM for for patient to call office back. Patient to bring in CD for appointment. Need to know what location images were done at and if they are xray or MRI images. Also, need patient to bring report with disc. Waiting for patient to call back with response to message. [facility] 11-20-2023 Hospital Discharge instructions Patient Education 11/20/2023 14:50:37 Prostate Cancer Screening Prostate Cancer Screening Prostate cancer screening is testing that is done to check for the presence of prostate cancer in men. The prostate gland is a walnut-sized gland that is located below the bladder and in front of the rectum in males. The function of the prostate is to add fluid to semen during ejaculation. Prostate cancer is one of the most common types of cancer in men. Who should have prostate cancer screening? Screening recommendations vary based on age and other risk factors, as well as between the professional organizations who make the recommendations. In general, screening is recommended if: You are age 50 to 70 and have an average risk for prostate cancer. You should talk with your health care provider about your need for screening and how often screening should be done. Because most prostate cancers are slow growing and will not cause , screening in this age group is generally reserved for men who have a 10- to 15-year life expectancy. You are younger than age 50, and you have these risk factors: ?Having a father, brother, or uncle who has been diagnosed with prostate cancer. The risk is higher if your family member's cancer occurred at an early age or if you have multiple family members with prostate cancer at an early age. ?Being a male who is Black or is of [place] or sub-Saharan descent. In general, screening is not recommended if: You are younger than age 40. You are between the ages of 40 and 49 and you have no risk factors. You are 70 years of age or older. At this age, the risks that screening can cause are greater than the benefits that it may provide. If you are at high risk for prostate cancer, your health care provider may recommend that you have screenings more often or that you start screening at a younger age. How is screening for prostate cancer done? The recommended prostate cancer screening test is a blood test called the prostate-specific antigen (PSA) test. PSA is a protein that is made in the prostate. As you age, your prostate naturally produces more PSA. Abnormally high PSA levels may be caused by: Prostate cancer. An enlarged prostate that is not caused by cancer (benign prostatic hyperplasia, or BPH). This condition is very common in older men. A prostate gland infection (prostatitis) or urinary tract infection. Certain medicines such as male hormones (like testosterone) or other medicines that raise testosterone levels. A rectal exam may be done as part of prostate cancer screening to help provide information about the size of your prostate gland. When a rectal exam is performed, it should be done after the PSA level is drawn to avoid any effect on the results. Depending on the PSA results, you may need more tests, such as: A physical exam to check the size of your prostate gland, if not done as part of screening. Blood and imaging tests. A procedure to remove tissue samples from your prostate gland for testing (biopsy). This is the only way to know for certain if you have prostate cancer. What are the benefits of prostate cancer screening? Screening can help to identify cancer at an early stage, before symptoms start and when the cancer can be treated more easily. There is a small chance that screening may lower your risk of dying from prostate cancer. The chance is small because prostate cancer is a slow-growing cancer, and most men with prostate cancer from a different cause. What are the risks of prostate cancer screening? The main risk of prostate cancer screening is diagnosing and treating prostate cancer that would never have caused any symptoms or problems. This is called overdiagnosisand overtreatment. PSA screening cannot tell you if your PSA is high due to cancer or a different cause. A prostate biopsy is the only procedure to diagnose prostate cancer. Even the results of a biopsy may not tell you if your cancer needs to be treated. Slow-growing prostate cancer may not need any treatment other than monitoring, so diagnosing and treating it may cause unnecessary stress or other side effects. Questions to ask your health care provider When should I start prostate cancer screening? What is my risk for prostate cancer? How often do I need screening? What type of screening tests do I need? How do I get my test results? What do my results mean? Do I need treatment? Where to find more information The [employer]: www.cancer.org [employer]: www.auanet.org Contact a health care provider if: You have difficulty urinating. You have pain when you urinate or ejaculate. You have blood in your urine or semen. You have pain in your back or in the area of your prostate. Summary Prostate cancer is a common type of cancer in men. The prostate gland is located below the bladder and in front of the rectum. This gland adds fluid to semen during ejaculation. Prostate cancer screening may identify cancer at an early stage, when the cancer can be treated more easily and is less likely to have spread to other areas of the body. The prostate-specific antigen (PSA) test is the recommended screening test for prostate cancer, but it has associated risks. Discuss the risks and benefits of prostate cancer screening with your health care provider. If you are age 70 or older, the risks that screening can cause are greater than the benefits that it may provide. This information is not intended to replace advice given to you by your health care provider. Make sure you discuss any questions you have with your health care provider. Document Revised: 01/29/2022 Document Reviewed: 01/29/2022 Seaters Patient Education 2022 Informative. Follow Up Care 11/14/2022 14:18:25 With:SEYMOUR LOW, Wild Herrera, URL Address: [facility] [address] , [place] [address]- When: Unknown [facility] 11-13-2023 Note [facility] Cardiology Clinic Note Chief Complaint: Patient here for 1 year follow up CAD, hypertension, and hyperlipidemia. No recent labs/imaging since last year. Denies chest pain, SOB, and lightheadedness/syncope. Says he feels palpitations every once in awhile , which are not new. HPI: Shantal Leonard is a 53 y.o. male PMHx: CAD s/p stent 05/2016 to lad and rca 07/2016, HTN, HLD, palpitations He has been doing well since last seen. He joined a nutritional group, lost 30# since last seen. He as been watching his carb and sugar intake. He works out at [email or web address] 3 days a week. Denies any c/o chest pain, dyspnea, ESPINO, orthopnea, PND, dizziness/LH. He has some mild feet swelling at the end of the day, he typically is on his feet a lot with the [employer] business, resolves by the AM. Update 11/13/2023: No exertional chest pain or shortness of breath, no significant lightheadedness or dizziness. Has intermittent palpitations. Family history: His father had 5 vessel bypass in his 50s. Mr. Akins is not diabetic, he does not smoke. He says that he is put on weight since last year gradually due to increased p.o. intake. Cardiology ROS: Review of Systems Constitutional: Positive for weight gain (23# since October 2022). Respiratory: Positive for snoring. Musculoskeletal: Negative. All other systems reviewed and are negative. Past Medical History He has a past medical history of Coronary artery disease, Hyperlipidemia, and Hypertension. Surgical History He has a past surgical history that includes Cardiac catheterization; Coronary stent placement; Knee surgery; Hernia repair; Hand surgery; and Appendectomy. Social History He reports that he has never smoked. He has never used smokeless tobacco. He reports current alcohol use. No history on file for drug use. Family History Family History Problem Relation Name Age of Onset Coronary artery disease Father Other (CABG) Father Prostate cancer Father Heart attack Father's Brother Allergies Penicillins Medications Current Outpatient Medications: aspirin 81 mg EC tablet, Take 1 tablet (81 mg) by mouth in the morning., Disp: 90 tablet, Rfl: 3 atorvastatin (Lipitor) 80 mg tablet, TAKE ONE TABLET BY MOUTH ONCE DAILY AT BEDTIME, Disp: 90 tablet, Rfl: 3 carvedilol (Coreg) 3.125 mg tablet, Take 1 tablet (3.125 mg) by mouth in the morning and at bedtime., Disp: 180 tablet, Rfl: 3 ezetimibe (Zetia) 10 mg tablet, Take 1 tablet (10 mg) by mouth in the morning., Disp: 90 tablet, Rfl: 3 lisinopril 10 mg tablet, Take 1 tablet (10 mg) by mouth in the morning., Disp: 90 tablet, Rfl: 3 tadalafil (Cialis) 10 mg tablet, Take 10 mg by mouth if needed each day., Disp: , Rfl: tamsulosin (Flomax) 0.4 mg 24 hr capsule, Take 0.4 mg by mouth in the morning and at bedtime., Disp: , Rfl: Last Recorded Vitals BP 128/84 (BP Location: Left arm, Patient Position: Sitting) Pulse 75 Ht 1.803 m (5' 11 ) Wt 132 kg (290 lb) SpO2 97% BMI 40.45 kg/m??? Physical Examination: GENERAL: alert and oriented x3, well developed, in no acute distress. HEAD: atraumatic, normocephalic. EYES: ADAM, EOMI. NECK: trachea midline, no JVD present, no carotid bruits present. CARDIAC: S1, S2 present. RRR. No murmur, rubs, or gallops. RESPIRATORY: CTAB, no increased effort of breathing, no rales, rhonchi, or wheezing. ABDOMEN: soft, nontender, nondistended. EXTREMITIES: no lower extremity edema, peripheral pulses are 2+ bilaterally. No rash/skin discoloration present. NEURO: strength/sensation equal and symmetric in bilateral upper and lower extremities. PSYCH: appropriate mood, affect, and judgement. Labs/Testing/Procedures: No results found for: EXTCMP, BMPR1A, CBCDIF, BNP, BNP, LASAP, RED NM stress test 03/28/21: no ischemia, EF 70% ECHO 05/16/2016: normal biventricular function, no significant valvular abnormalities Assessment: Coronary atherosclerosis s/p stent to the LAD 05/2016 and RCA 07/2016 Essential hypertension Dyslipidemia Palpitations Plan: Continue guideline directed medical therapy for coronary artery disease including aspirin, high intensity statin therapy, beta-almaz and lisinopril Will obtain fasting lipid profile and liver function tests; the patient is currently on Lipitor 80 mg and Zetia. Will obtain an echocardiogram given the duration of time since his last echo Will consider repeating a stress test every 3 to 5 years or sooner should he have symptoms Return to clinic in 1 year or sooner should problems arise Jud Greenfield MD, MPH, [facility], [facility], [facility] Interventional Cardiology Pager Email: [email or web address] 08-27-2023 Evaluation note Encounter Date Diagnosis Assessment Notes Aug, Arthritis of right acromioclavicular joint (ICD-10 - M19.011) Aug, Tear of right supraspinatus tendon (ICD-10 - M75.101) A 1/1cc marcaine / kenalog cortisone injection was performed into the subacromial space under sterile technique. Patient tolerated the injection well with no adverse reaction. Patient will consider a surgery in the future. Patient instructed on gentle motion and strength exercise. Discussed potentially obtaining MRI later this year to reassess rotator cuff. He had demonstration of tear in 2000. We discussed that this tear potentially could be worse despite the fact that he is showing very good function. Would consider surgery possibly later part of this year based on MRI results Aug, Acute pain of right shoulder (ICD-10 - M25.511) Aug, Greater trochanteric bursitis of right hip (ICD-10 - M70.61) [facility] Other 11-17-2023 Evaluation note* Encounter Date Diagnosis Assessment Notes Treatment Notes Treatment Clinical Notes Jun, Carbuncle (ICD-10 - L02.93) [facility] Other 07-31-2023 Evaluation note* Encounter Date Diagnosis Assessment Notes Treatment Notes Treatment Clinical Notes Feb, Arthritis of right acromioclavicular joint (ICD-10 - M19.011) Feb, Tear of right supraspinatus tendon (ICD-10 - M75.101) A marcaine / kenalog cortisone injection was performed into the subacromial space under sterile technique. Patient tolerated the injection well with no adverse reaction. Patient instructed on gentle motion and strength exercise. Examination and assessment of this patient was performed by Jena Jackson NP and patient will continue with the treatment plan per Dr. Lopez, who initiated this treatment plan. Dr. Lopez is present in the office today and providing supervision. Feb, Acute pain of right shoulder (ICD-10 - M25.511) Feb, Greater trochanteric bursitis of right hip (ICD-10 - M70.61) This appears to be pain secondary to greater trochanteric bursitis. Discussed treatment options as oral or topical NSAIDs, physical therapy with iontophoresis, or cortisone injection to the greater trochanteric bursa. Discussed with patient we can preform a cortisone injection to help with the pain. Discussed to call the office with the pain flairs back up and we can preform the injection. Jean voices understanding an agrees [facility] Other 03-29-2023 Hospital Discharge instructions Patient Education 11/14/2022 14:16:48 Benign Prostatic Hyperplasia Benign Prostatic Hyperplasia Benign prostatic hyperplasia (BPH) is an enlarged prostate gland that is caused by the normal agingprocess and not by cancer. The prostate is a walnut-sized gland that is involved in the production of semen. It is located in front of the rectum and below the bladder. The bladder stores urine and the urethra is the tube that carries the urine out of the body. The prostate may get bigger as a man gets older. An enlarged prostate can press on the urethra. This can make it harder to pass urine. The build-up of urine in the bladder can cause infection. Back pressure and infection may progress to bladder damage and kidney (renal) failure. What are the causes? This condition is part of a normal aging process. However, not all men develop problems from this condition. If the prostate enlarges away from the urethra, urine flow will not be blocked. If it enlarges toward the urethra and compresses it, there will be problems passing urine. What increases the risk? This condition is more likely to develop in men over the age of 50 years. What are the signs or symptoms? Symptoms of this condition include: Getting up often during the night to urinate. Needing to urinate frequently during the day. Difficulty starting urine flow. Decrease in size and strength of your urine stream. Leaking (dribbling) after urinating. Inability to pass urine. This needs immediate treatment. Inability to completely empty your bladder. Pain when you pass urine. This is more common if there is also an infection. Urinary tract infection (UTI). How is this diagnosed? This condition is diagnosed based on your medical history, a physical exam, and your symptoms. Tests will also be done, such as: A post-void bladder scan. This measures any amount of urine that may remain in your bladder after you finish urinating. A digital rectal exam. In a rectal exam, your health care provider checks your prostate by putting a lubricated, gloved finger into your rectum to feel the back of your prostate gland. This exam detects the size of your gland and any abnormal lumps or growths. An exam of your urine (urinalysis). A prostate specific antigen (PSA) screening. This is a blood test used to screen for prostate cancer. An ultrasound. This test uses sound waves to electronically produce a picture of your prostate gland. Your health care provider may refer you to a specialist in kidney and prostate diseases (urologist). How is this treated? Once symptoms begin, your health care provider will monitor your condition (active surveillance or watchful waiting). Treatment for this condition will depend on the severity of your condition. Treatment may include: Observation and yearly exams. This may be the only treatment needed if your condition and symptoms are mild. Medicines to relieve your symptoms, including: ?Medicines to shrink the prostate. ?Medicines to relax the muscle of the prostate. Surgery in severe cases. Surgery may include: ?Prostatectomy. In this procedure, the prostate tissue is removed completely through an open incision or with a laparoscope or robotics. ?Transurethral resection of the prostate (TURP). In this procedure, a tool is inserted through the opening at the tip of the penis (urethra). It is used to cut away tissue of the inner core of the prostate. The pieces are removed through the same opening of the penis. This removes the blockage. ?Transurethral incision (TUIP). In this procedure, small cuts are made in the prostate. This lessens the prostate's pressure on the urethra. ?Transurethral microwave thermotherapy (TUMT). This procedure uses microwaves to create heat. The heat destroys and removes a small amount of prostate tissue. ?Transurethral needle ablation (TUNA). This procedure uses radio frequencies to destroy and remove a small amount of prostate tissue. ?Interstitial laser coagulation (ILC). This procedure uses a laser to destroy and remove a small amount of prostate tissue. ?Transurethral electrovaporization (TUVP). This procedure uses electrodes to destroy and remove a small amount of prostate tissue. ?Prostatic urethral lift. This procedure inserts an implant to push the lobes of the prostate away from the urethra. Follow these instructions at home: Take [id number] and prescription medicines only as told by your health care provider. Monitor your symptoms for any changes. Contact your health care provider with any changes. Avoid drinking large amounts of liquid before going to bed or out in public. Avoid or reduce how much caffeine or alcohol you drink. Give yourself time when you urinate. Keep all follow-up visits as told by your health care provider. This is important. Contact a health care provider if: You have unexplained back pain. Your symptoms do not get better with treatment. You develop side effects from the medicine you are taking. Your urine becomes very dark or has a bad smell. Your lower abdomen becomes distended and you have trouble passing your urine. Get help right away if: You have a fever or chills. You suddenly cannot urinate. You feel lightheaded, or very dizzy, or you faint. There are large amounts of blood or clots in the urine. Your urinary problems become hard to manage. You develop moderate to severe low back or flank pain. The flank is the side of your body between the ribs and the hip. These symptoms may represent a serious problem that is an emergency. Do not wait to see if the symptoms will go away. Get medical help right away. Call your local emergency services (911 in the [place] Do not drive yourself to the hospital. Summary Benign prostatic hyperplasia (BPH) is an enlarged prostate that is caused by the normal aging process and not by cancer. An enlarged prostate can press on the urethra. This can make it hard to pass urine. This condition is part of a normal aging process and is more likely to develop in men over the age of 50 years. Get help right away if you suddenly cannot urinate. This information is not intended to replace advice given to you by your health care provider. Make sure you discuss any questions you have with your health care provider. Document Released: 08/05/2006 Document Revised: 06/30/2019 Document Reviewed: 09/09/2017 [employer] Patient Education 2020 Informative. Follow Up Care 07/04/2022 08:23:56 With:SEYMOUR LOW, Wild Herrera, LOLY Address: [facility] [address], [place] [address]- When: Unknown [facility] 11-16-2022 Hospital Discharge instructions Patient Education 07/04/2022 08:07:30 Hematuria, Adult Hematuria, Adult Hematuria is blood in the urine. Blood may be visible in the urine, or it may be identified with a test. This condition can be caused by infections of the bladder, urethra, kidney, or prostate. Otherpossible causes include: Kidney stones. Cancer of the urinary tract. Too much calcium in the urine. Conditions that are passed from parent to child (inherited conditions). Exercise that requires a lot of energy. Infections can usually be treated with medicine, and a kidney stone usually will pass through your urine. If neither of these is the cause of your hematuria, more tests may be needed to identify the cause of your symptoms. It is very important to tell your health care provider about any blood in your urine, even if it ispainless or the blood stops without treatment. Blood in the urine, when it happens and then stops and then happens again, can be a symptom of a very serious condition, including cancer. There is no pain in the initial stages of many urinary cancers. Follow these instructions at home: Medicines Take kjwh-mcw-ctzezqu and prescription medicines only as told by your health care provider. If you were prescribed an antibiotic medicine, take it as told by your health care provider. Do notstop taking the antibiotic even if you start to feel better. Eating and drinking Drink enough fluid to keep your urine clear or pale yellow. It is recommended that you drink 3 4 quarts (2.8 3.8 L) a day. If you have been diagnosed with an infection, it is recommended that you drink cranberry juice in addition to large amounts of water. Avoid caffeine, tea, and carbonated beverages. These tend to irritate the bladder. Avoid alcohol because it may irritate the prostate (men). General instructions If you have been diagnosed with a kidney stone, follow your health care provider's instructions about straining your urine to catch the stone. Empty your bladder often. Avoid holding urine for long periods of time. If you are female: ?After a bowel movement, wipe from front to back and use each piece of toilet paper only once. ?Empty your bladder before and after sex. Pay attention to any changes in your symptoms. Tell your health care provider about any changes or any new symptoms. It is your responsibility to get your test results. Ask your health care provider, or the department performing the test, when your results will be ready. Keep all follow-up visits as told by your health care provider. This is important. Contact a health care provider if: You develop back pain. You have a fever. You have nausea or vomiting. Your symptoms do not improve after 3 days. Your symptoms get worse. Get help right away if: You develop severe vomiting and are unable take medicine without vomiting. You develop severe pain in your back or abdomen even though you are taking medicine. You pass a large amount of blood in your urine. You pass blood clots in your urine. You feel very weak or like you might faint. You faint. Summary Hematuria is blood in the urine. It has many possible causes. It is very important that you tell your health care provider about any blood in your urine, even ifit is painless or the blood stops without treatment. Take ztcc-aqn-iejsesz and prescription medicines only as told by your health care provider. Drink enough fluid to keep your urine clear or pale yellow. This information is not intended to replace advice given to you by your health care provider. Make sure you discuss any questions you have with your health care provider. Document Released: 08/05/2006 Document Revised: 12/30/2019 Document Reviewed: 09/07/2017 [employer] Patient Education 2019 Informative. Follow Up Care 06/20/2022 09:02:59 With:SEYMOUR LOW, Wild Herrera, URL Address: [facility] [address] , [place] [address]- When:Within 4 Month(s) Comments:OV [facility] 10-31-2022 Hospital Discharge instructions Patient Education 06/18/2022 13:05:23 Hematuria, Adult Hematuria, Adult Hematuria is blood in the urine. Blood may be visible in the urine, or it may be identified with a test. This condition can be caused by infections of the bladder, urethra, kidney, or prostate. Otherpossible causes include: Kidney stones. Cancer of the urinary tract. Too much calcium in the urine. Conditions that are passed from parent to child (inherited conditions). Exercise that requires a lot of energy. Infections can usually be treated with medicine, and a kidney stone usually will pass through your urine. If neither of these is the cause of your hematuria, more tests may be needed to identify the cause of your symptoms. It is very important to tell your health care provider about any blood in your urine, even if it ispainless or the blood stops without treatment. Blood in the urine, when it happens and then stops and then happens again, can be a symptom of a very serious condition, including cancer. There is no pain in the initial stages of many urinary cancers. Follow these instructions at home: Medicines Take frai-ses-tjuixfc and prescription medicines only as told by your health care provider. If you were prescribed an antibiotic medicine, take it as told by your health care provider. Do notstop taking the antibiotic even if you start to feel better. Eating and drinking Drink enough fluid to keep your urine clear or pale yellow. It is recommended that you drink 3 4 quarts (2.8 3.8 L) a day. If you have been diagnosed with an infection, it is recommended that you drink cranberry juice in addition to large amounts of water. Avoid caffeine, tea, and carbonated beverages. These tend to irritate the bladder. Avoid alcohol because it may irritate the prostate (men). General instructions If you have been diagnosed with a kidney stone, follow your health care provider's instructions about straining your urine to catch the stone. Empty your bladder often. Avoid holding urine for long periods of time. If you are female: ?After a bowel movement, wipe from front to back and use each piece of toilet paper only once. ?Empty your bladder before and after sex. Pay attention to any changes in your symptoms. Tell your health care provider about any changes or any new symptoms. It is your responsibility to get your test results. Ask your health care provider, or the department performing the test, when your results will be ready. Keep all follow-up visits as told by your health care provider. This is important. Contact a health care provider if: You develop back pain. You have a fever. You have nausea or vomiting. Your symptoms do not improve after 3 days. Your symptoms get worse. Get help right away if: You develop severe vomiting and are unable take medicine without vomiting. You develop severe pain in your back or abdomen even though you are taking medicine. You pass a large amount of blood in your urine. You pass blood clots in your urine. You feel very weak or like you might faint. You faint. Summary Hematuria is blood in the urine. It has many possible causes. It is very important that you tell your health care provider about any blood in your urine, even ifit is painless or the blood stops without treatment. Take edel-jsv-waxnkji and prescription medicines only as told by your health care provider. Drink enough fluid to keep your urine clear or pale yellow. This information is not intended to replace advice given to you by your health care provider. Make sure you discuss any questions you have with your health care provider. Document Released: 08/05/2006 Document Revised: 12/30/2019 Document Reviewed: 09/07/2017 [employer] Patient Education 2020 Informative. Follow Up Care 05/21/2022 12:02:58 With:SEYMOUR LOW, Wild Herrera, URL Address: [facility] [address] , [place] [phone] When: Unknown [facility] 10-24-2022 Evaluation note* Encounter Date Diagnosis Assessment Notes Treatment Notes Treatment Clinical Notes May, Arthritis of right acromioclavicular joint (ICD-10 - M19.011) May, Tear of right supraspinatus tendon (ICD-10 - M75.101) Extensive discussion about current condition and treatment options available. A 2/1cc marcaine / kenalog cortisone injection was performed into the subacromial space under sterile technique. Patient tolerated the injection well with no adverse reaction. Continue with daily exercises. If problems persist, we may need to consider surgical treatment. May, Acute pain of right shoulder (ICD-10 - M25.511) [facility] Other 07-05-2022 Evaluation note* Encounter Date Diagnosis Assessment Notes Treatment Notes Treatment Clinical Notes Feb, Arthritis of right acromioclavicular joint (ICD-10 - M19.011) A marcaine / kenalog cortisone injection was performed into the subacromial space under sterile technique. Patient tolerated the injection well with no adverse reaction. Feb, Tear of right supraspinatus tendon (ICD-10 - M75.101) Feb, Acute pain of right shoulder (ICD-10 - M25.511) [facility] Other 01-11-2022 Evaluation note* Encounter Date Diagnosis Assessment Notes Treatment Notes Treatment Clinical Notes Aug, Arthritis of right acromioclavicular joint (ICD-10 - M19.011) Aug, Tear of right supraspinatus tendon (ICD-10 - M75.101) [place] [facility] results discussed with patient. Extensive discussion about current condition and treatment options available. A marcaine / kenalog cortisone injection was performed into the subacromial space under sterile technique. Patient tolerated the injection well with no adverse reaction. Formal therapy order provided. Instructed on gentle motion and strengthening exercises, these were demonstrated. Discussed potential for surgical treatment as well. Aug, Acute pain of right shoulder (ICD-10 - M25.511) [facility] Other Evaluation + Plan note No data available for this section [facility] Future Appointments Appointment Date:07/04/2022 07:45:00 AM Scheduled Provider:Wild GANDARA MD Location:[facility] Appointment Type:URO Procedure 15 min Diagnostic Tests Pending * PSA Total 06/18/22 [facility] evaluation + Plan note Future Appointments Appointment Date:11/14/2022 01:15:00 PM Scheduled Provider:Wild GANDARA MD Location:[facility] Appointment Type:URO Office Visit Diagnostic Tests Pending * UroVysion Fish and Urine Cyto ([facility]) 07/04/22 [facility] Evaluation + Plan note Future Appointments Appointment Date:11/20/2023 02:15:00 PM Scheduled Provider:Wild GANDARA MD Location:[facility] Appointment Type:URO Office Visit Diagnostic Tests Pending * PSA Total 11/14/22 [facility] Evaluation + Plan note Future Appointments Appointment Date:11/18/2024 02:15:00 PM Scheduled Provider:Wild GANDARA MD Location:[facility] Appointment Type:URO Office Visit Diagnostic Tests Pending * PSA Total 11/20/23 [facility] Evaluation + Plan note Future Appointments Appointment Date:11/18/2024 02:15:00 PM Scheduled Provider:Wild GANDARA MD Location:[facility] Appointment Type:URO [facility] Diagnosis Onset Date Resolution Status Arthritis of right acromioclavicular joint acute Tear of right supraspinatus tendon acute [facility] Work Phone: evaluation noteNo assessment information available [facility] Work Phone: evaluation note* Diagnosis Pain- Primary Generalized pain [facility] Diagnosis Tendinopathy of right rotator cuff- Primary documented in this encounter [facility] note* Diagnosis Pain Generalized pain documented in this encounter [facility] general Narrative - Reported* Type Description Date Medical History high blood pressure Medical History High cholesterol Surgical History 2 stents Surgical History right wrist Surgical History right knee Surgical History appendix Surgical History 2 hernia surgeries [employer] [facility] Other History general Narrative - Reported* Type Description Date Medical History high blood pressure Medical History High cholesterol Surgical History 2 stents Surgical History right wrist Surgical History right knee Surgical History appendix Surgical History 2 hernia surgeries Hospitalization History see surgical history [facility] Other Hospital Discharge instructions No data available for this section [facility] No data available for this section [facility]ative[facility] Diagnostic Procedure Only (Routine) - Closed Specialty Diagnoses / Procedures Referred By Contac t Referred To Contact XR IMAGING Diagnoses Pain Procedures XR SHOULDER GENERAL 3V OR MORE AP/TRUE AP/OTHER RIGHT RADEX SHOULDER COMPLETE MINIMUM [address] [place] [address] [place] [address] Imaging [place] [address] Referral ID Status Reason Start Date Expiration Date V isits Requested Visits Authorized [id number] Closed Auto-Generate d Referral 07/07/2024 08/06/2025 1 1 [facility] Summary Purpose Family History No Family History Records Found Relationship Condition Age at Onset Recorded Date/T deepika father Heart disease Unknown Unknown Malignant neoplasm Unknown Advance Directives No Advanced Directives Records FoundDocuments on File Type Date Recorded Patient Avionics Technician Expl anation Advance Directives and Living Will Power of Lead Technologist In Cytogenetics Advance Directive Response Recorded Date/ Time Advance Directives No December 01, 2:22pm Assessments Diagnosis Scrotal abscess Other inflammatory disorder of male genital organs Chief Complaint and Reason for Visit Chief Complaint op sp rt shoulder pa in requested injection M75.101 - Unspecified rotator cuff tear or rupture Reason for Visit Arthritis of right a cromioclavicular joint Tear of right supraspinatus tendon Chief Complaint M75.101 Reason for Referral Specialty Diagnoses / Procedures Referred By Jordon victoria Referred To Contact [facility] Diagnoses Tendinopathy of right rotator cuff Procedures CONSULT TO PHYSICAL THERAPY PHYSICAL THERAPY EVALUATION HIGH COMPLEX [address] [place] [address] [place] [address] [facility] [place] [address] [place] [address] Referral ID Status Reason Start Date Expiration Date Visits Requested Visits Authorized [id number] Pending Review Auto-Generat ed Referral 4 07/07/2025 1 1 Additional Source Comments (unrecognized sect ion and content) No Status Records FoundNo Status Records FoundNo Status Records FoundNo Status Records FoundNo Status Records FoundNo Status Records Found INFORMATION SOURCE (unrecogn ized section and content) DATE CREATED AUTHOR 06/17/2019 [facility] DATE CREATED AUTHOR AUTHOR'S ORGANIZ ATION 11/11/2022 [facility] DATE CREATED AUTHOR AUTHOR'S ORGANIZ ATION 03/08/2024 [facility] DATE CREATED AUTHOR AUTHOR'S ORGANIZ ATION 07/09/2024 [facility] DATE CREATED AUTHOR AUTHOR'S ORGANIZ ATION 10/10/2024 [facility] DATE CREATED AUTHOR AUTHOR'S ORGANIZ ATION 11/12/2024 [facility] REASON FOR VISIT (unrecogniz ed section and content) Reason Comments New Reason Comments Radio Gen RMP Specialty Diagnoses / Procedures Referred By Contac t Referred To Contact XR IMAGING Diagnoses Pain Procedures XR SHOULDER GENERAL 3V OR MORE AP/TRUE AP/OTHER RIGHT RADEX SHOULDER COMPLETE MINIMUM [address] [place] [address] [place] [address] [place] [address] Referral ID Status Reason Start Date Expiration Date V isits Requested Visits Authorized [id number] Closed Auto-Generate d Referral 07/07/2024 08/06/2025 1 1 Care Team (unrecognized sect ion and content) Team Status: Active Member Role Status Dates Chau Regalado DO Primary Care Provider Active Team Status: Active Member Role Status Dates Chau Regalado DO Primary Care Provider Active Start: December 17, 2023 [facility] Oniel Greenfield Attending Provider Active Start: December 17, 2023 Team Status: Inactive Member Role Status Dates Chau Regalado DO Primary Care Provider Active Start: March 05, 2024 End: March 05, 2024 FRIDA AguilarC Attending Provider Active Start: March 05, 2024 End: March 05, 2024 Team Status: Inactive Member Role Status Dates Chau Regalado DO Primary Care Provider Active Start: December 03, 2023 End: December 03, 2023 Shantal Lopez MD Active Start: Nov End: December 03, 2023 MIAN Aguilar Attending Provider Active Start: December 03, 2023 End: December 03, 2023 Team Status: Active Member Role Status Dates Shantal Lopez MD Attending Provider Active Star t: December 03, 2023 Chau Regalado DO Primary Care Provider Active Start: December 03, 2023 Team Status: Inactive Member Role Status Dates Shantal Lopez MD Attending Provider Active Star t: December 03, 2023 End: December 03, 2023 Chau Regalado DO Primary Care Provider Active Start: December 03, 2023 End: December 03, 2023 Representative Personal Service Relationship Specialty Start Date End Date [address] [place] [address] PCP - General 03/02/02 Representative Personal Service Relationship Specialty Start Date End Date Nash [address]ivas [address] [place] [address] PCP - General 03/02/02 Representative Personal Service Relationship Specialty Start Date End Date [address] [place] [address] PCP - General 03/02/02 Representative Personal Service Relationship Specialty Start Date End Date [address] [place] [address] PCP - General 03/02/02 Goals (unrecognized section and content) Goals may be documented in a n alternate section Source Comments (unrecognize d section and content) In the event this informatio n is protected by the Federal Confidentiality of Alcohol and Drug Abuse Patient Records regulations: The Federal rules restrict any use of the information to criminally investigate or prosecute any alcohol or drug abuse patient.[facility] Center[facility] the event this information is protected by the Federal Confidentiality of Alcohol and Drug Abuse Patient Records regulations: The Federal rules restrict any use of the information to criminally investigate or prosecute any alcohol or drug abuse patient.[facility] Center[facility] the event this information is protected by the [facility] Confidentiality of Alcohol and Drug Abuse Patient Records regulations: The Federal rules restrict any use of the information to criminally investigate or prosecute any alcohol or drug abuse patient.[facility] the event this information is protected by the Federal Confidentiality of Alcohol and Drug Abuse Patient Records regulations: The Federal rules restrict any use of the information to criminally investigate or prosecute any alcohol or drug abuse patient.[facility] FOR RECORDS PERTAINING TO PATIENTS WHO ARE OR HAVE BEEN ENROLLED IN A CHEMICAL DEPENDENCY/SUBSTANCEABUSE PROGRAM, SOME INFORMATION MAY BE OMITTED. This clinical summary was aggregated from multiple sources. Caution should be exercised in using it in the provision of clinical care. This summary normalizes information from multiple sources, and as a consequence, information in this document may materially change the coding, format and clinical context of patient data. In addition, data may be omitted in some cases. CLINICAL DECISIONS SHOULD BE BASED ON THE PRIMARY CLINICAL RECORDS. [employer] [facility]. provides no warranty or guarantee of the accuracy or completeness of information in this document.
[2024-11-17 10:31] LABS: Basophils Percent Auto 0.6 % (0.2-2.0); Eosinophils Absolute Auto 0.2 10^3/uL (0.0-0.7); Eosinophils Percent Auto 3.7 % (0.9-7.0); Hematocrit 35.8 % (42.0-54.0); Hemoglobin 12.1 g/dL (14.0-18.0); Immature Granulocytes Abs Auto 0.01 10^3/uL (0.00-0.03); Immature Granulocytes Pct Auto 0.2 % (0.0-0.5); Mean Corpuscular HGB Conc 33.8 g/dL (29.9-35.2); Mean Corpuscular Hemoglobin 28.5 pg (25.9-34.0); Mean Corpuscular Volume 84.4 fL (80.0-94.0); Mean Platelet Volume 10.8 fL (9.5-13.5); Monocytes Absolute Auto 0.5 10^3/uL (0.3-0.8); Monocytes Percent Auto 7.7 % (1.7-12.0); Neutrophils Absolute Auto 3.7 10^3/uL (1.4-6.5); Neutrophils Percent Auto 56.8 % (43.0-75.0); Platelet Count 261 10^3/uL (150-450); Red Blood Count 4.24 10^6/uL (4.70-6.10); White Blood Count 6.5 10^3/uL (4.0-11.0)
[2024-11-17 11:02] LABS: Alanine Aminotransferase 23 U/L (16-63); Albumin Globulin Ratio 1.3; Albumin Level 3.9 g/dL (3.4-5.0); Alkaline Phosphatase 60 U/L (46-116); Anion Gap 15.8; Aspartate Amino Transferase 14 U/L (15-37); BUN Creatinine Ratio 14.6; Bilirubin Total 0.8 mg/dL (0.2-1.0); Calcium 9.2 mg/dL (8.5-10.1); Carbon Dioxide 23.4 mmol/L (21.0-32.0); Chloride 106 mmol/L (98-107); Chol HDL Ratio 2.5; Cholesterol 108 mg/dL (<=200); Estimated GFR (African America >60 (>=60 mL/min/1.73m^2); Estimated GFR (Non-African Ame >60 (>=60 mL/min/1.73m^2); Glucose 104 mg/dL (74-106); HDL Cholesterol 44 mg/dL (40-60); LDL Cholesterol Calculated 49.6 mg/dL; Potassium 4.2 mmol/L (3.5-5.1); Sodium 141 mmol/L (136-145); Total Protein 6.9 g/dL (6.4-8.2); Triglycerides 72 mg/dL (<=150); VLDL CHOLESTEROL 14.4 mg/dL
== END 2024-11-17 10:03 | disposition home or self-care (01) ==
LOC: LAB 10:03
PROVIDERS: PCP Internal Medicine
DX: I25.10 Atherosclerotic heart disease of native coronary artery without angina pectoris (principal); I10 Essential (primary) hypertension; E78.5 Hyperlipidemia, unspecified; N20.0 Calculus of kidney; N40.1 Benign prostatic hyperplasia with lower urinary tract symptoms
CPT/HCPCS: 36415; 74018; 80053; 80061; 84153; 85025

== ENCOUNTER 2024-11-17 10:29 | Outpatient (OUT) | payer BC, SELFPAY ==
--- NOTE | 2024-11-17 10:42 | XR_ITS ---
The [address] [address] Patient Name: SHANTAL SUAREZ MRN: [id number] date: 1970 Sex: M Assigned Patient Location: LAB Current Patient Location: LAB Accession/Order Number: [id number] Exam Date: 11/17/2024 11:04 Report Date: 11/17/2024 11:14 At the request of: KOFI AHUJA MD Procedure: XR abdomen 1V SINGLE VIEW ABDOMEN COMPARISON: None CLINICAL DATA: History of kidney stones and BPH Supine views of the abdomen pelvis were obtained. There is air and stool within the colon. No dilated small bowel loops are present. There is a somewhat linear 4 mm calcification overlying the lower pole of the left kidney which may be a stone. The right kidney is partially obscured by the intestinal contents. There are no obvious radiopaque right renal stones. There are hemostasis clips and potential suture material the right lower abdomen. Patient has history of appendectomy which might be the etiology. There are multiple suspected pelvic phleboliths on the left. Slight levoscoliotic curvature and degenerative changes are noted at the spine. XR/XR abdomen 1V IMPRESSION: SUSPECTED LEFT NEPHROLITHIASIS. Impression dictated by: Elsy Sena M.D.11/17/2024 11:14 AM Dictation Location: [place] [address] Electronically authenticated by: [id number] Date: 11/17/2024 11:14
[2024-11-17 11:50] LABS: Prostate Specific Antigen Dx 1.17 ng/mL (<=4.00)
== END 2024-11-17 10:30 | disposition home or self-care (01) ==
LOC: LAB 10:30
PROVIDERS: PCP Internal Medicine; Visit Provider Urology
DX: N20.0 Calculus of kidney (principal); N40.1 Benign prostatic hyperplasia with lower urinary tract symptoms
CPT/HCPCS: 36415; 74018; 84153